=== PATIENT | female | born 1935 | race Caucasian/White ===

== ENCOUNTER 2017-08-12 01:35 | Inpatient (IN) | payer MEDICARE, MEDICAID ==
[2017-08-12 03:07] VITALS: BP 143/73
[2017-08-12] MEDS ORDERED: Magnesium Hydroxide (MOM) 30 mL UDC PO PRN (03:37)
[2017-08-12] MEDS ORDERED: Maalox 30 mL Cup PO PRN (03:37)
--- NOTE | 2017-08-12 08:41 | History and Physical ---
History of Present Illness - HPI Chief Complaint: Psychosis HPI: 82 y/o female who was transferred from [facility] to [facility] for psychosis. The patient was staying at the [facility] and failed to pay her rent for the past 5 days. The data manager of the hotel called the police to get the patient out of the hotel. When the patient refused to answer the door, the patient mention that the were going to have a suicide on there hands and expressed suicial ideation to the patrol police sergeant. As a result the patient was brought to the [facility] for further evaluation and treatment. Patient had some initial labwork done in the ER. Please see transferred records. Patient is currently taking tramadol 50mg PO q6 PRn pain, Ibuprofen 600mg PO BID as well as Ativan, Wellbutrin, and permethrin topical. Discontinued medications include furosemide, hydroxyzine, oxybutynin Vital Signs: Last Vital Signs Temp 98.5 F 08/12/17 03:00 Pulse 73 08/12/17 03:00 Resp 18 08/12/17 03:00 BP 143/73 08/12/17 03:07 Pulse Ox 98 08/12/17 03:00 Past Medical History Cardiovascular: Report: HTN Pulmonary: Report: No Pertinent Hx CRIBBER: Report: No Pertinent Hx GI: Report: No Pertinent Hx Psych: Report: Psychosis Musculoskeletal: Report: Other (arthritis) Rheumatologic: Report: No pertinent Hx Infectious Disease: Report: No Pertinent Hx Renal/: Report: No Pertinent Hx Endocrine: Report: No Pertinent Hx Dermatology: Report: No Pertinent Hx - Past Surgical History Past Surgical History: Appendectomy, Other (hysterectomy, left foot surgery) Family Medical History - Family Member Son History Unknown: Yes Social History Smoke: No Alcohol: None Drugs: None Lives: Alone - Medications Home Medications: Home Medication Medication Instructions Recorded Type Unobtainable 08/12/17 History - Allergies Allergies/Adverse Reactions: Allergies Allergy/AdvReac Type Severity Reaction Status Date / Time Tetracyclines AdvReac Verified 08/12/17 03:08 Review of Systems - Review of Systems Constitutional: Report: No Significant Eyes: Report: No Significant ENT: Report: No Significant Respiratory: Report: No Significant Cardiovascular: Report: No Significant Gastrointestinal: Report: No Significant Genitourinary: Report: No Significant Musculoskeletal: Report: No Significant Skin: Report: No Significant Neurological: Report: No Significant Physical Exam - Physical Exam HEENT: Report: Ears Nose Throat within normal limits, Pharnyx within normal limits Neck: Report: Within normal limits Cardiovascular Systems: Report: +s1/s2 noted, Regular, Rate and Rhythm Respiratory: Report: Breath Sounds are within normal limits Abdomen: Report: Non-tender to palpation, Tender to palpation Back: Report: Inspection of back is within normal limits. Extremities: Report: Non-tender to palpation. Skin: Report: Color of skin is within normal limits Neuro/Psych: Report: Mood affect is within normal limits, A+Ox3, CN II-XII intact - Assessment Assessment: psychosis osteoarthritis hypertension ? anemia - Plan Plan: admit to [facility] continue current medication add dyazide for BP control add ibuprofen as needed for arthritis
[2017-08-12] MEDS: Multivitamin Tab PO SCH (10:13)
--- NOTE | 2017-08-13 03:42 | Psychosocial Evaluation ---
DATE OF SERVICE: 08/12/2017 IDENTIFYING DATA: The patient is an 82-year-old woman, resident of a [facility]. Information obtained by directly interviewing the patient as well as reviewing the admission papers. JUSTIFICATION FOR HOSPITALIZATION: The patient is admitted on 5150 as a danger to self. CHIEF COMPLAINT: "I am depressed." HISTORY OF PRESENT ILLNESS: This is the first psychiatric hospitalization to [facility] for this patient who is reported to have been staying at the [facility] and failed to pay her rent for the past 5 days. The grocery department manager of the [facility] called and asked the patient to pay the rent and the patient has been refusing to do so and also the patient has refused to leave the [facility]. Police were called and the police came and knocked on the door. The patient has been threatening that there is a suicide on their hands if she were to be pulled out of the room. The patient has not been able to contract for safety. The patient was taken to the [facility] for further evaluation and the patient was medically cleared and transferred over here for further stabilization. The patient ____ prior to the hospitalization has been on Wellbutrin and is not very clear for how long she has been taking. PAST PSYCHIATRIC HISTORY: The patient denies any prior psychiatric hospitalization. MEDICAL HISTORY: Physical examination is requested to be done by Dr. Rae. SUBSTANCE ABUSE HISTORY: None. PHYSICAL OR SEXUAL ABUSE HISTORY: None. LEGAL PROBLEMS: None at this time. STRENGTH AND ASSETS: The patient is motivated. MENTAL STATUS EXAMINATION: The patient is an 82-year-old, looking her stated age and superficially cooperative. Eye contact is poor. Mood is depressed. Affect is constricted. Insight and judgment are noted to be very much impaired. Impulse control is very poor. Coping skills are also noted to be poor. The patient is threatening to take her life and the patient is not homicidal at this time. The patient's insight and judgment noted be very much impaired. Impulse control is noted to be poor. Short and long-term memory are noted to be very poor. The patient is getting easily frustrated at the time of the evaluation. DIAGNOSTIC IMPRESSION: AXIS I. Major depressive disorder, recurrent and moderate. AXIS II: None. AXIS III: Osteoarthritis, hypertension and anemia. IMMEDIATE TREATMENT PLAN: The patient is going to be observed on the inpatient unit, provided with supportive psychotherapy. The patient is going to be closely monitored. Once stabilized, the patient is going to be discharged. In view of her depression, the patient is going to be started with the Lexapro. We will start with Lexapro at 5 mg and then the medication is going to be gradually titrated upwards. ESTIMATED LENGTH OF STAY: 5-7 days. DISCHARGE CRITERIA: When she is no longer a threat to self or others and be able to cope up with the stress. JOB# [id number]
--- NOTE | 2017-08-13 08:33 | General Progress Note ---
Subjective - Review of Systems Service Date: 08/13/17 Subjective: Awake,Alert, but confused VS T98.1 P64 R18 BP 129/68 Objective - Physical Exam Vitals and I&O: Vital Signs Temp 98.1 F 08/13/17 06:31 Pulse 64 08/13/17 06:31 Resp 18 08/13/17 06:31 BP 129/68 08/13/17 06:31 Pulse Ox 95 08/13/17 06:31 Intake & Output 08/12/17 08/13/17 08/13/17 18:59 06:59 18:59 Intake Total 970 Balance 970 Intake: Oral 970 Other: # Voids 1 Stool Characteristics Soft Formed Active Medications: Current Medications Acetaminophen (Tylenol) 650 mg PO Q4HR PRN PRN Reason: Mild Pain / Temp above 100 Stop: 10/11/17 03:36 Al Hydrox/Mg Hydrox/Simethicone (Maalox) 30 ml PO Q4HR PRN PRN Reason: GI DISTRESS Stop: 10/11/17 03:36 Escitalopram Oxalate (Lexapro) 5 mg PO DAILY PRIYA; Protocol Stop: 10/12/17 08:59 Ibuprofen (Motrin) 600 mg PO TID PRIYA Stop: 10/11/17 08:59 Last Admin: 08/12/17 21:12 Dose: 600 mg Lorazepam (Ativan) 0.5 mg PO Q4HR PRN; Protocol PRN Reason: Anxiety Stop: 09/11/17 03:36 Magnesium Hydroxide (Milk Of Magnesia) 30 ml PO HS PRN PRN Reason: Constipation Multivitamins/Vitamin C (Theragran) 1 tab PO DAILY PRIYA Stop: 10/11/17 08:59 Last Admin: 08/12/17 10:13 Dose: 1 tab Triamterene/HCTZ (Dyazide) 1 cap PO DAILY PRIYA Stop: 10/11/17 08:59 Last Admin: 08/12/17 14:32 Dose: Not Given Zolpidem Tartrate (Ambien) 5 mg PO HS PRN PRN Reason: Insomnia Stop: 10/11/17 03:36 General: Alert, Oriented x3, No acute distress HEENT: Atraumatic, PERRLA, EOMI Neck: Supple Cardiovascular: Regular rate, Normal S1, Normal S2 Lungs: Clear to auscultation Abdomen: Bowel sounds, Soft Extremities: no Clubbing, no Cyanosis, no Edema Assessment/Plan - Assessment Assessment: psychosis osteoarthritis hypertension anemia - Plan Plan: admit to [facility] continue current medication add dyazide for BP control add ibuprofen as needed for arthritis
[2017-08-13 09:03] LABS: % BASOPHILS 0.2 % (0.0-2.0); % EOSINOPHILS 1.8 % (0.0-5.0); % LYMPHOCYTES 33.4 % (20.0-50.0); % MONOCYTES 6.4 % (2.0-10.0); % NEUTROPHILS 58.2 % (40.0-80.0); EOSINOPHILE ABSOLUTE 0.1 Th/cmm (0.1-0.4); HEMATOCRIT 33.5 % (41.0-60); HEMOGLOBIN 11.3 gm/dL (12-16); LYMPHOCYTE ABSOLUTE 1.5 Th/cmm (1.5-3.0); MEAN CELL VOLUME 88.4 fl (81-100); MEAN CORPUSCULAR HGB CONC 33.9 pg (28.0-36.0); MEAN PLATELET VOLUME 8.3 fl; MONOCYTE ABSOLUTE 0.3 Th/cmm (0.3-1.0); NEUTROPHILE ABSOLUTE 2.5 Th/cmm (1.8-8.0); PLATELET COUNT 233 Th/cmm (150-400); RED BLOOD COUNT 3.79 Mil/cmm (3.80-5.20); RED CELL DISTRIBUTION WIDTH 19.2 % (11.5-20.0); WHITE BLOOD COUNT 4.4 Th/cmm (4.8-10.8)
[2017-08-13] MEDS: Multivitamin Tab PO SCH (09:39)
[2017-08-13 09:41] LABS: ALB/GLOB RATIO 1.2 (1.0-1.8); ALBUMIN 3.3 gm/dL (3.7-5.3); ALKALINE PHOSPHATASE 72 U/L (34-104); ANION GAP 9.7 (7.0-16.0); BILIRUBIN,TOTAL 0.4 mg/dL (0.3-1.0); BUN - UREA NITROGEN 13 mg/dL (7-25); CALCIUM SERUM 8.9 mg/dL (8.6-10.3); CHLORIDE 107 mEq/L (98-107); CHOLESTEROL 161 mg/dL (<200); CREATININE - SERUM 0.6 mg/dL (0.6-1.2); GLUCOSE 93 mg/dL (70-105); HDL -HIGH DENSITY LIPOPROTEIN 57 mg/dL (23-92); POTASSIUM SERUM 3.7 mEq/L (3.5-5.1); SGOT 16 U/L (13-39); SGPT/ALT 12 U/L (7-52); SODIUM SERUM 139 mEq/L (136-145); TOTAL PROTEIN,SERUM 6.1 gm/dL (6.0-8.3); TRIGLYCERIDES 59 mg/dL (<150)
--- NOTE | 2017-08-13 22:57 | Progress Notes ---
DATE: 08/13/2017 SUBJECTIVE: Staff was spoken to. The patient is interviewed. Mood is noted to be irritable. Affect is constricted. Coping skills are noted to be extremely poor. Insight and judgment are also reviewed appear impaired. The patient has been screaming and yelling and stating that all her belongings are there; if the Police Department and she needs to get them right now. The patient has no insight into her illness. The patient is going to be closely monitored, encouraged and then followed up with supportive therapy. At this time, the patient is not ready to be discharged at a lower level of care in view of her psychosis. ASSESSMENT: The patient is still depressed and psychotic. PLAN: To continue the patient with supportive therapy, encouraged the patient to verbalize the concerns rather than to act out. [facility]# [id number]
--- NOTE | 2017-08-14 06:24 | General Progress Note ---
Subjective - Review of Systems Service Date: 08/14/17 Subjective: Awake,Alert, but confused VS T97.7 P62 R18 BP 139/82 Objective - Results Result Diagrams: 08/13/17 08:20 08/13/17 08:20 Recent Labs: Laboratory Last Values WBC 4.4 Th/cmm (4.8-10.8) L 08/13/17 08:20 RBC 3.79 Mil/cmm (3.80-5.20) L 08/13/17 08:20 Hgb 11.3 gm/dL (12-16) L 08/13/17 08:20 Hct 33.5 % (41.0-60) L 08/13/17 08:20 MCV 88.4 fl (81-100) 08/13/17 08:20 MCH 30.0 pg (27.0-31.0) 08/13/17 08:20 MCHC Differential 33.9 pg (28.0-36.0) 08/13/17 08:20 RDW 19.2 % (11.5-20.0) 08/13/17 08:20 Plt Count 233 Th/cmm (150-400) 08/13/17 08:20 MPV 8.3 fl 08/13/17 08:20 Neutrophils % 58.2 % (40.0-80.0) 08/13/17 08:20 Lymphocytes % 33.4 % (20.0-50.0) 08/13/17 08:20 Monocytes % 6.4 % (2.0-10.0) 08/13/17 08:20 Eosinophils % 1.8 % (0.0-5.0) 08/13/17 08:20 Basophils % 0.2 % (0.0-2.0) 08/13/17 08:20 Sodium 139 mEq/L (136-145) 08/13/17 08:20 Potassium 3.7 mEq/L (3.5-5.1) 08/13/17 08:20 Chloride 107 mEq/L (98-107) 08/13/17 08:20 Carbon Dioxide 26.0 mEq/L (21.0-31.0) 08/13/17 08:20 Anion Gap 9.7 (7.0-16.0) 08/13/17 08:20 BUN 13 mg/dL (7-25) 08/13/17 08:20 Creatinine 0.6 mg/dL (0.6-1.2) 08/13/17 08:20 Est GFR ( Amer) TNP 08/13/17 08:20 Est GFR (Non-Af Amer) TNP 08/13/17 08:20 BUN/Creatinine Ratio 21.7 08/13/17 08:20 Glucose 93 mg/dL (70-105) 08/13/17 08:20 Calcium 8.9 mg/dL (8.6-10.3) 08/13/17 08:20 Total Bilirubin 0.4 mg/dL (0.3-1.0) 08/13/17 08:20 AST 16 U/L (13-39) 08/13/17 08:20 ALT 12 U/L (7-52) 08/13/17 08:20 Alkaline Phosphatase 72 U/L (34-104) 08/13/17 08:20 Total Protein 6.1 gm/dL (6.0-8.3) 08/13/17 08:20 Albumin 3.3 gm/dL (3.7-5.3) L 08/13/17 08:20 Globulin 2.8 gm/dL 08/13/17 08:20 Albumin/Globulin Ratio 1.2 (1.0-1.8) 08/13/17 08:20 Triglycerides 59 mg/dL (<150) 08/13/17 08:20 Cholesterol 161 mg/dL (<200) 08/13/17 08:20 LDL Cholesterol Direct 94 mg/dL (75-193) 08/13/17 08:20 HDL Cholesterol 57 mg/dL (23-92) 08/13/17 08:20 TSH 1.50 uIU/ml (0.34-5.60) 08/13/17 08:20 - Physical Exam Vitals and I&O: Vital Signs Temp 97.7 F 08/14/17 05:46 Pulse 62 08/14/17 05:46 Resp 18 08/14/17 05:46 BP 139/82 08/14/17 05:46 Pulse Ox 99 08/14/17 05:46 Intake & Output 08/13/17 08/13/17 08/14/17 06:59 18:59 06:59 Intake Total 970 1200 780 Balance 970 1200 780 Intake: Oral 970 1200 780 Other: # Voids 1 3 2 # Bowel Movements 0 Stool Characteristics Soft Soft Soft Formed Formed Formed Active Medications: Current Medications Acetaminophen (Tylenol) 650 mg PO Q4HR PRN PRN Reason: Mild Pain / Temp above 100 Stop: 10/11/17 03:36 Al Hydrox/Mg Hydrox/Simethicone (Maalox) 30 ml PO Q4HR PRN PRN Reason: GI DISTRESS Stop: 10/11/17 03:36 Escitalopram Oxalate (Lexapro) 5 mg PO DAILY PRIYA; Protocol Stop: 10/12/17 08:59 Ibuprofen (Motrin) 600 mg PO TID PRIYA Stop: 10/11/17 08:59 Last Admin: 08/13/17 21:26 Dose: 600 mg Lorazepam (Ativan) 0.5 mg PO Q4HR PRN; Protocol PRN Reason: Anxiety Stop: 09/11/17 03:36 Multivitamins/Vitamin C (Theragran) 1 tab PO DAILY PRIYA Stop: 10/11/17 08:59 Last Admin: 08/13/17 09:39 Dose: 1 tab Quetiapine Fumarate (Seroquel) 12.5 mg PO HS PRIYA; Protocol Stop: 10/12/17 20:59 Triamterene/HCTZ (Dyazide) 1 cap PO DAILY PRIYA Stop: 10/11/17 08:59 Last Admin: 08/13/17 09:38 Dose: 1 cap Zolpidem Tartrate (Ambien) 5 mg PO HS PRN PRN Reason: Insomnia Stop: 10/11/17 03:36 General: Alert, Oriented x3, No acute distress HEENT: Atraumatic, PERRLA, EOMI Neck: Supple Cardiovascular: Regular rate, Normal S1, Normal S2 Lungs: Clear to auscultation Abdomen: Bowel sounds, Soft Extremities: no Clubbing, no Cyanosis, no Edema Assessment/Plan - Assessment Assessment: psychosis osteoarthritis hypertension anemia - Plan Plan: admit to [facility] continue current medication add dyazide for BP control add ibuprofen as needed for arthritis
[2017-08-14] MEDS: Multivitamin Tab PO SCH (09:05)
--- NOTE | 2017-08-14 15:32 | Progress Notes ---
DATE: 08/14/2017 SUBJECTIVE: Staff was spoken to. The patient is interviewed. Mood is noted to be irritable. Affect is constricted. Coping skills are noted to be poor. The patient is very irritable and angry and is demanding that she should not be in here and she should be at a assisted. The binder caser has been helping the patient to look for placement for her, but the patient at this time has no insight into her illness. ASSESSMENT: The patient is still grossly psychotic and demented. PLAN: To continue the patient with supportive therapy. I encouraged the patient to verbalize the concerns rather than to act out. JOB# [id number]
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
--- NOTE | 2017-08-15 05:05 | General Progress Note ---
Subjective - Review of Systems Service Date: 08/15/17 Subjective: Awake,Alert, but confused VS T98.2 P57 R19 BP 116/52 Objective - Results Result Diagrams: 08/13/17 08:20 08/13/17 08:20 Recent Labs: Laboratory Last Values WBC 4.4 Th/cmm (4.8-10.8) L 08/13/17 08:20 RBC 3.79 Mil/cmm (3.80-5.20) L 08/13/17 08:20 Hgb 11.3 gm/dL (12-16) L 08/13/17 08:20 Hct 33.5 % (41.0-60) L 08/13/17 08:20 MCV 88.4 fl (81-100) 08/13/17 08:20 MCH 30.0 pg (27.0-31.0) 08/13/17 08:20 MCHC Differential 33.9 pg (28.0-36.0) 08/13/17 08:20 RDW 19.2 % (11.5-20.0) 08/13/17 08:20 Plt Count 233 Th/cmm (150-400) 08/13/17 08:20 MPV 8.3 fl 08/13/17 08:20 Neutrophils % 58.2 % (40.0-80.0) 08/13/17 08:20 Lymphocytes % 33.4 % (20.0-50.0) 08/13/17 08:20 Monocytes % 6.4 % (2.0-10.0) 08/13/17 08:20 Eosinophils % 1.8 % (0.0-5.0) 08/13/17 08:20 Basophils % 0.2 % (0.0-2.0) 08/13/17 08:20 Sodium 139 mEq/L (136-145) 08/13/17 08:20 Potassium 3.7 mEq/L (3.5-5.1) 08/13/17 08:20 Chloride 107 mEq/L (98-107) 08/13/17 08:20 Carbon Dioxide 26.0 mEq/L (21.0-31.0) 08/13/17 08:20 Anion Gap 9.7 (7.0-16.0) 08/13/17 08:20 BUN 13 mg/dL (7-25) 08/13/17 08:20 Creatinine 0.6 mg/dL (0.6-1.2) 08/13/17 08:20 Est GFR ( Amer) TNP 08/13/17 08:20 Est GFR (Non-Af Amer) TNP 08/13/17 08:20 BUN/Creatinine Ratio 21.7 08/13/17 08:20 Glucose 93 mg/dL (70-105) 08/13/17 08:20 Calcium 8.9 mg/dL (8.6-10.3) 08/13/17 08:20 Total Bilirubin 0.4 mg/dL (0.3-1.0) 08/13/17 08:20 AST 16 U/L (13-39) 08/13/17 08:20 ALT 12 U/L (7-52) 08/13/17 08:20 Alkaline Phosphatase 72 U/L (34-104) 08/13/17 08:20 Total Protein 6.1 gm/dL (6.0-8.3) 08/13/17 08:20 Albumin 3.3 gm/dL (3.7-5.3) L 08/13/17 08:20 Globulin 2.8 gm/dL 08/13/17 08:20 Albumin/Globulin Ratio 1.2 (1.0-1.8) 08/13/17 08:20 Triglycerides 59 mg/dL (<150) 08/13/17 08:20 Cholesterol 161 mg/dL (<200) 08/13/17 08:20 LDL Cholesterol Direct 94 mg/dL (75-193) 08/13/17 08:20 HDL Cholesterol 57 mg/dL (23-92) 08/13/17 08:20 TSH 1.50 uIU/ml (0.34-5.60) 08/13/17 08:20 - Physical Exam Vitals and I&O: Vital Signs Temp 98.2 F 08/14/17 20:25 Pulse 57 08/14/17 20:25 Resp 19 08/14/17 20:25 BP 116/52 08/14/17 20:25 Pulse Ox 98 08/14/17 20:25 Intake & Output 08/14/17 08/14/17 08/15/17 06:59 18:59 06:59 Intake Total 780 1300 1180 Balance 780 1300 1180 Intake: Oral 780 1300 1180 Other: # Voids 2 3 1 # Bowel Movements 0 Stool Characteristics Soft Soft Soft Formed Formed Formed Active Medications: Current Medications Acetaminophen (Tylenol) 650 mg PO Q4HR PRN PRN Reason: Mild Pain / Temp above 100 Stop: 10/11/17 03:36 Al Hydrox/Mg Hydrox/Simethicone (Maalox) 30 ml PO Q4HR PRN PRN Reason: GI DISTRESS Stop: 10/11/17 03:36 Escitalopram Oxalate (Lexapro) 5 mg PO DAILY PRIYA; Protocol Stop: 10/12/17 08:59 Ibuprofen (Motrin) 600 mg PO TID PRIYA Stop: 10/11/17 08:59 Last Admin: 08/14/17 20:39 Dose: 600 mg Lorazepam (Ativan) 0.5 mg PO Q4HR PRN; Protocol PRN Reason: Anxiety Stop: 09/11/17 03:36 Last Admin: 08/14/17 10:57 Dose: 0.5 mg Multivitamins/Vitamin C (Theragran) 1 tab PO DAILY PRIYA Stop: 10/11/17 08:59 Last Admin: 08/14/17 09:05 Dose: 1 tab Quetiapine Fumarate (Seroquel) 12.5 mg PO HS PRIYA; Protocol Stop: 10/12/17 20:59 Last Admin: 08/14/17 20:39 Dose: 12.5 mg Triamterene/HCTZ (Dyazide) 1 cap PO DAILY PRIYA Stop: 10/11/17 08:59 Last Admin: 08/14/17 08:43 Dose: 1 cap Zolpidem Tartrate (Ambien) 5 mg PO HS PRN PRN Reason: Insomnia Stop: 10/11/17 03:36 Last Admin: 08/14/17 20:39 Dose: 5 mg General: Alert, Oriented x3, No acute distress HEENT: Atraumatic, PERRLA, EOMI Neck: Supple Cardiovascular: Regular rate, Normal S1, Normal S2 Lungs: Clear to auscultation Abdomen: Bowel sounds, Soft Extremities: no Clubbing, no Cyanosis, no Edema Assessment/Plan - Assessment Assessment: psychosis osteoarthritis hypertension anemia - Plan Plan: admit to [facility] continue current medication add dyazide for BP control add ibuprofen as needed for arthritis
[2017-08-15] MEDS: Multivitamin Tab PO SCH (10:00)
[2017-08-15] MEDS: Escitalopram Oxalate 5 mg Tab PO SCH (10:01)
--- NOTE | 2017-08-15 13:39 | Progress Notes ---
DATE: 08/15/2017 SUBJECTIVE: Staff was spoken to. The patient is interviewed. Mood is noted to be irritable. Affect is constricted. The patient is stating that she should not be forced to go into ____ any other room on board. The patient is stating she does not want to spend her money. The patient wants ____. Insight and judgment seems to be impaired. Impulse control seems to be poor. Paranoia is a major concern with the patient. The patient has been having difficult time to cope with the stress and the patient has been encouraged to work with the staff, but the patient is stating that there is no reason for her to work with them and the patient demanded that the patient be discharged, but the patient has no place to return to. ASSESSMENT: The patient is still paranoid. PLAN: To continue the patient with the supportive therapy and encouraged the patient to verbalize the concerns. The patient is going to be continued on the Risperdal and started on the Seroquel. She has been getting gradually increased to 25 mg and followed up with the supportive therapy and work with the case planner with regards to finding a place for this patient. JOB# [id number]
--- NOTE | 2017-08-16 07:49 | General Progress Note ---
Subjective - Review of Systems Service Date: 08/16/17 Subjective: Awake,Alert, but confused VS T97.8 P89 R19 BP 117/76 Objective - Results Result Diagrams: 08/13/17 08:20 08/13/17 08:20 Recent Labs: Laboratory Last Values WBC 4.4 Th/cmm (4.8-10.8) L 08/13/17 08:20 RBC 3.79 Mil/cmm (3.80-5.20) L 08/13/17 08:20 Hgb 11.3 gm/dL (12-16) L 08/13/17 08:20 Hct 33.5 % (41.0-60) L 08/13/17 08:20 MCV 88.4 fl (81-100) 08/13/17 08:20 MCH 30.0 pg (27.0-31.0) 08/13/17 08:20 MCHC Differential 33.9 pg (28.0-36.0) 08/13/17 08:20 RDW 19.2 % (11.5-20.0) 08/13/17 08:20 Plt Count 233 Th/cmm (150-400) 08/13/17 08:20 MPV 8.3 fl 08/13/17 08:20 Neutrophils % 58.2 % (40.0-80.0) 08/13/17 08:20 Lymphocytes % 33.4 % (20.0-50.0) 08/13/17 08:20 Monocytes % 6.4 % (2.0-10.0) 08/13/17 08:20 Eosinophils % 1.8 % (0.0-5.0) 08/13/17 08:20 Basophils % 0.2 % (0.0-2.0) 08/13/17 08:20 Sodium 139 mEq/L (136-145) 08/13/17 08:20 Potassium 3.7 mEq/L (3.5-5.1) 08/13/17 08:20 Chloride 107 mEq/L (98-107) 08/13/17 08:20 Carbon Dioxide 26.0 mEq/L (21.0-31.0) 08/13/17 08:20 Anion Gap 9.7 (7.0-16.0) 08/13/17 08:20 BUN 13 mg/dL (7-25) 08/13/17 08:20 Creatinine 0.6 mg/dL (0.6-1.2) 08/13/17 08:20 Est GFR ( Amer) TNP 08/13/17 08:20 Est GFR (Non-Af Amer) TNP 08/13/17 08:20 BUN/Creatinine Ratio 21.7 08/13/17 08:20 Glucose 93 mg/dL (70-105) 08/13/17 08:20 Calcium 8.9 mg/dL (8.6-10.3) 08/13/17 08:20 Total Bilirubin 0.4 mg/dL (0.3-1.0) 08/13/17 08:20 AST 16 U/L (13-39) 08/13/17 08:20 ALT 12 U/L (7-52) 08/13/17 08:20 Alkaline Phosphatase 72 U/L (34-104) 08/13/17 08:20 Total Protein 6.1 gm/dL (6.0-8.3) 08/13/17 08:20 Albumin 3.3 gm/dL (3.7-5.3) L 08/13/17 08:20 Globulin 2.8 gm/dL 08/13/17 08:20 Albumin/Globulin Ratio 1.2 (1.0-1.8) 08/13/17 08:20 Triglycerides 59 mg/dL (<150) 08/13/17 08:20 Cholesterol 161 mg/dL (<200) 08/13/17 08:20 LDL Cholesterol Direct 94 mg/dL (75-193) 08/13/17 08:20 HDL Cholesterol 57 mg/dL (23-92) 08/13/17 08:20 TSH 1.50 uIU/ml (0.34-5.60) 08/13/17 08:20 - Physical Exam Vitals and I&O: Vital Signs Temp 97.8 F 08/16/17 04:42 Pulse 80 08/16/17 04:42 Resp 19 08/16/17 04:42 BP 117/76 08/16/17 04:42 Pulse Ox 93 08/16/17 04:42 Intake & Output 08/15/17 08/16/17 08/16/17 18:59 06:59 18:59 Intake Total 480 Balance 480 Intake: Oral 480 Other: # Voids 2 Stool Characteristics Soft Soft Formed Formed Active Medications: Current Medications Acetaminophen (Tylenol) 650 mg PO Q4HR PRN PRN Reason: Mild Pain / Temp above 100 Stop: 10/11/17 03:36 Al Hydrox/Mg Hydrox/Simethicone (Maalox) 30 ml PO Q4HR PRN PRN Reason: GI DISTRESS Stop: 10/11/17 03:36 Last Admin: 08/15/17 15:55 Dose: 30 ml Escitalopram Oxalate (Lexapro) 5 mg PO DAILY [facility]; Protocol Stop: 10/12/17 08:59 Last Admin: 08/15/17 10:01 Dose: Not Given Ibuprofen (Motrin) 600 mg PO TID PRIYA Stop: 10/11/17 08:59 Last Admin: 08/15/17 20:51 Dose: 600 mg Lorazepam (Ativan) 0.5 mg PO Q4HR PRN; Protocol PRN Reason: Anxiety Stop: 09/11/17 03:36 Last Admin: 08/14/17 10:57 Dose: 0.5 mg Multivitamins/Vitamin C (Theragran) 1 tab PO DAILY PRIYA Stop: 10/11/17 08:59 Last Admin: 08/15/17 10:00 Dose: 1 tab Quetiapine Fumarate (Seroquel) 25 mg PO HS PRIYA; Protocol Stop: 10/14/17 20:59 Last Admin: 08/15/17 20:52 Dose: 25 mg Triamterene/HCTZ (Dyazide) 1 cap PO DAILY PRIYA Stop: 10/11/17 08:59 Last Admin: 08/15/17 09:41 Dose: 1 cap Zolpidem Tartrate (Ambien) 5 mg PO HS PRN PRN Reason: Insomnia Stop: 10/11/17 03:36 Last Admin: 08/15/17 20:52 Dose: 5 mg General: Alert, Oriented x3, No acute distress HEENT: Atraumatic, PERRLA, EOMI Neck: Supple Cardiovascular: Regular rate, Normal S1, Normal S2 Lungs: Clear to auscultation Abdomen: Bowel sounds, Soft Extremities: no Clubbing, no Cyanosis, no Edema Assessment/Plan - Assessment Assessment: psychosis osteoarthritis hypertension anemia - Plan Plan: admit to [facility] continue current medication add dyazide for BP control add ibuprofen as needed for arthritis
[2017-08-16] MEDS: Multivitamin Tab PO SCH (09:15)
[2017-08-16] MEDS: Escitalopram Oxalate 5 mg Tab PO SCH (09:15)
--- NOTE | 2017-08-17 00:13 | Progress Notes ---
DATE: 08/16/2017 PSYCHIATRIC PROGRESS NOTE SUBJECTIVE: Staff was spoke to. The patient is interviewed. Mood is noted to be irritable. Affect is constricted. Insight and judgment are noted to be still impaired. Impulse control is noted to be poor. Coping skills are also noted to be poor. The patient has been having difficult time to cope with the stress. The patient is pacing on the unit all the time. The patient has been currently placed on the low dose of the Seroquel to contain her psychosis and aggressive behavior. The patient is also on 5 mg of the escitalopram and has been able to tolerate the medication. Sleep is noted to be improving. Appetite is noted to be fair at this time. ASSESSMENT: The patient is still paranoid and depressed. PLAN: To continue the patient with the supportive therapy and followup. [facility]# [id number]
--- NOTE | 2017-08-17 07:27 | General Progress Note ---
Subjective - Review of Systems Service Date: 08/17/17 Subjective: Awake,Alert, but confused VS T97.0 P56 R18 BP 122/55 Objective - Results Result Diagrams: 08/13/17 08:20 08/13/17 08:20 Recent Labs: Laboratory Last Values WBC 4.4 Th/cmm (4.8-10.8) L 08/13/17 08:20 RBC 3.79 Mil/cmm (3.80-5.20) L 08/13/17 08:20 Hgb 11.3 gm/dL (12-16) L 08/13/17 08:20 Hct 33.5 % (41.0-60) L 08/13/17 08:20 MCV 88.4 fl (81-100) 08/13/17 08:20 MCH 30.0 pg (27.0-31.0) 08/13/17 08:20 MCHC Differential 33.9 pg (28.0-36.0) 08/13/17 08:20 RDW 19.2 % (11.5-20.0) 08/13/17 08:20 Plt Count 233 Th/cmm (150-400) 08/13/17 08:20 MPV 8.3 fl 08/13/17 08:20 Neutrophils % 58.2 % (40.0-80.0) 08/13/17 08:20 Lymphocytes % 33.4 % (20.0-50.0) 08/13/17 08:20 Monocytes % 6.4 % (2.0-10.0) 08/13/17 08:20 Eosinophils % 1.8 % (0.0-5.0) 08/13/17 08:20 Basophils % 0.2 % (0.0-2.0) 08/13/17 08:20 Sodium 139 mEq/L (136-145) 08/13/17 08:20 Potassium 3.7 mEq/L (3.5-5.1) 08/13/17 08:20 Chloride 107 mEq/L (98-107) 08/13/17 08:20 Carbon Dioxide 26.0 mEq/L (21.0-31.0) 08/13/17 08:20 Anion Gap 9.7 (7.0-16.0) 08/13/17 08:20 BUN 13 mg/dL (7-25) 08/13/17 08:20 Creatinine 0.6 mg/dL (0.6-1.2) 08/13/17 08:20 Est GFR ( Amer) TNP 08/13/17 08:20 Est GFR (Non-Af Amer) TNP 08/13/17 08:20 BUN/Creatinine Ratio 21.7 08/13/17 08:20 Glucose 93 mg/dL (70-105) 08/13/17 08:20 Calcium 8.9 mg/dL (8.6-10.3) 08/13/17 08:20 Total Bilirubin 0.4 mg/dL (0.3-1.0) 08/13/17 08:20 AST 16 U/L (13-39) 08/13/17 08:20 ALT 12 U/L (7-52) 08/13/17 08:20 Alkaline Phosphatase 72 U/L (34-104) 08/13/17 08:20 Total Protein 6.1 gm/dL (6.0-8.3) 08/13/17 08:20 Albumin 3.3 gm/dL (3.7-5.3) L 08/13/17 08:20 Globulin 2.8 gm/dL 08/13/17 08:20 Albumin/Globulin Ratio 1.2 (1.0-1.8) 08/13/17 08:20 Triglycerides 59 mg/dL (<150) 08/13/17 08:20 Cholesterol 161 mg/dL (<200) 08/13/17 08:20 LDL Cholesterol Direct 94 mg/dL (75-193) 08/13/17 08:20 HDL Cholesterol 57 mg/dL (23-92) 08/13/17 08:20 TSH 1.50 uIU/ml (0.34-5.60) 08/13/17 08:20 - Physical Exam Vitals and I&O: Vital Signs Temp 97 F 08/17/17 06:33 Pulse 56 08/17/17 06:33 Resp 18 08/17/17 06:33 BP 122/55 08/17/17 06:33 Pulse Ox 96 08/17/17 06:33 Intake & Output 08/16/17 08/17/17 08/17/17 18:59 06:59 18:59 Intake Total 240 Balance 240 Intake: Oral 240 Other: # Voids 2 Stool Characteristics Soft Formed Active Medications: Current Medications Acetaminophen (Tylenol) 650 mg PO Q4HR PRN PRN Reason: Mild Pain / Temp above 100 Stop: 10/11/17 03:36 Al Hydrox/Mg Hydrox/Simethicone (Maalox) 30 ml PO Q4HR PRN PRN Reason: GI DISTRESS Stop: 10/11/17 03:36 Last Admin: 08/15/17 15:55 Dose: 30 ml Escitalopram Oxalate (Lexapro) 5 mg PO DAILY [facility]; Protocol Stop: 10/12/17 08:59 Last Admin: 08/16/17 09:15 Dose: 5 mg Ibuprofen (Motrin) 600 mg PO TID PRIYA Stop: 10/11/17 08:59 Last Admin: 08/16/17 21:23 Dose: 600 mg Lorazepam (Ativan) 0.5 mg PO Q4HR PRN; Protocol PRN Reason: Anxiety Stop: 09/11/17 03:36 Last Admin: 08/14/17 10:57 Dose: 0.5 mg Multivitamins/Vitamin C (Theragran) 1 tab PO DAILY PRIYA Stop: 10/11/17 08:59 Last Admin: 08/16/17 09:15 Dose: 1 tab Quetiapine Fumarate (Seroquel) 25 mg PO HS PRIYA; Protocol Stop: 10/14/17 20:59 Last Admin: 08/16/17 21:23 Dose: 25 mg Triamterene/HCTZ (Dyazide) 1 cap PO DAILY [facility] Stop: 10/11/17 08:59 Last Admin: 08/16/17 10:05 Dose: 1 cap Zolpidem Tartrate (Ambien) 5 mg PO HS PRN PRN Reason: Insomnia Stop: 10/11/17 03:36 Last Admin: 08/16/17 22:31 Dose: 5 mg General: Alert, Oriented x3, No acute distress HEENT: Atraumatic, PERRLA, EOMI Neck: Supple Cardiovascular: Regular rate, Normal S1, Normal S2 Lungs: Clear to auscultation Abdomen: Bowel sounds, Soft Extremities: no Clubbing, no Cyanosis, no Edema Assessment/Plan - Assessment Assessment: psychosis major depression paranoid osteoarthritis hypertension anemia - Plan Plan: admit to [facility] continue current medication add dyazide for BP control add ibuprofen as needed for arthritis Nutritional Asmnt/Malnutr-PDOC - Dietary Evaluation Malnutrition Findings (Please click <Entered> for more info): Nutritional Asmnt/Malnutrition Start: 08/16/17 17: 33 Text: Status: Complete Freq: Protocol: Document 08/16/17 17:34 [email or web address] (Rec: 08/16/17 17:37 [email or web address] [email or web address]) Nutritional Asmnt/Malnutrition Patient General Information Nutritional Screening Moderate Risk Diagnosis suicidal, DTS Pertinent Medical Hx/Surgical Hx HTN, psychosis Subjective Information Pt seen having lunch in her room at time of visit. Pt reported good appetite. Per EMR, PO intake 100%. Current Diet Order/ Nutrition Support regular Pertinent Medications theragran, seroquel Pertinent Labs 08/13 alb 3.3 Nutritional Hx/Data Height 1.57 m Height (Calculated Centimeters) 157.5 Current Weight (lbs) 53.07 kg Weight (Calculated Kilograms) 53.1 Weight (Calculated Grams) 69373.3 [place] Body Weight 110 Body Mass Index (BMI) 21.4 Weight Status Approriate GI Symptoms GI Symptoms None Last BM none Difficult in: None Skin Integrity/Comment: dryness Current %PO Good (75-100%) Estimated Nutritional Goals BEE in Kcals: Using Current wt Calories/Kcals/Kg 25-30 Kcals Calculated 7322-7260 Protein: Using Current wt Protein g/k Protein Calculated 53 Fluid: ml 1325-1590ml (1ml/kcal) Nutritional Problem No current Nutrition Prob Problem N/A Malnutrition Alert Is there a minimum of two criteria No selected? Query Text:Check all the applicable criteria. A minimum of two criteria are recommended for diagnosis of either severe or non-severe malnutrition. Malnutrition Related to Morbid Obesity Malnutrition related to morbid obesity No Intervention/Recommendation Comments 1. Continue with regular diet as ordered. 2. Monitor PO intake, wt, labs and skin integrity 3. F/U as low risk in 7 days, 08/23 Expected Outcomes/Goals Expected Outcomes/Goals 1. PO intake to meet at least 75% of nutritional needs. 2. Wt stability, skin to remain intact, labs to approach WNL.
[2017-08-17] MEDS: Multivitamin Tab PO SCH (09:17)
[2017-08-17] MEDS: Escitalopram Oxalate 5 mg Tab PO SCH (09:18)
--- NOTE | 2017-08-17 22:43 | Progress Notes ---
DATE: 08/17/2017 PSYCHIATRIC PROGRESS NOTE SUBJECTIVE: Staff was spoken to. The patient is interviewed. Mood is noted to be irritable. Affect is constricted. Insight and judgment at this time are noted to be still improving. Impulse control seems to be poor. Coping skills are also noted to be very poor. The patient has been very agitated. The patient is stating that there is no reason for her to go to the board and care from ____. She does not want to spend the money. She wants rather go to a long term. ASSESSMENT: The patient is still gravely disabled and impulsive. PLAN: To continue the patient with supportive therapy. I encouraged the patient to verbalize the concerns rather than to act out. [facility]# [id number]
[2017-08-18] MEDS: Multivitamin Tab PO SCH (08:36)
[2017-08-18] MEDS: Escitalopram Oxalate 5 mg Tab PO SCH (08:43)
--- NOTE | 2017-08-18 09:02 | General Progress Note ---
Subjective - Review of Systems Service Date: 08/18/17 Subjective: Awake,Alert, but confused VS T98.2 P63 R18 BP 113/70 Objective - Results Result Diagrams: 08/13/17 08:20 08/13/17 08:20 Recent Labs: Laboratory Last Values WBC 4.4 Th/cmm (4.8-10.8) L 08/13/17 08:20 RBC 3.79 Mil/cmm (3.80-5.20) L 08/13/17 08:20 Hgb 11.3 gm/dL (12-16) L 08/13/17 08:20 Hct 33.5 % (41.0-60) L 08/13/17 08:20 MCV 88.4 fl (81-100) 08/13/17 08:20 MCH 30.0 pg (27.0-31.0) 08/13/17 08:20 MCHC Differential 33.9 pg (28.0-36.0) 08/13/17 08:20 RDW 19.2 % (11.5-20.0) 08/13/17 08:20 Plt Count 233 Th/cmm (150-400) 08/13/17 08:20 MPV 8.3 fl 08/13/17 08:20 Neutrophils % 58.2 % (40.0-80.0) 08/13/17 08:20 Lymphocytes % 33.4 % (20.0-50.0) 08/13/17 08:20 Monocytes % 6.4 % (2.0-10.0) 08/13/17 08:20 Eosinophils % 1.8 % (0.0-5.0) 08/13/17 08:20 Basophils % 0.2 % (0.0-2.0) 08/13/17 08:20 Sodium 139 mEq/L (136-145) 08/13/17 08:20 Potassium 3.7 mEq/L (3.5-5.1) 08/13/17 08:20 Chloride 107 mEq/L (98-107) 08/13/17 08:20 Carbon Dioxide 26.0 mEq/L (21.0-31.0) 08/13/17 08:20 Anion Gap 9.7 (7.0-16.0) 08/13/17 08:20 BUN 13 mg/dL (7-25) 08/13/17 08:20 Creatinine 0.6 mg/dL (0.6-1.2) 08/13/17 08:20 Est GFR ( Amer) TNP 08/13/17 08:20 Est GFR (Non-Af Amer) TNP 08/13/17 08:20 BUN/Creatinine Ratio 21.7 08/13/17 08:20 Glucose 93 mg/dL (70-105) 08/13/17 08:20 Calcium 8.9 mg/dL (8.6-10.3) 08/13/17 08:20 Total Bilirubin 0.4 mg/dL (0.3-1.0) 08/13/17 08:20 AST 16 U/L (13-39) 08/13/17 08:20 ALT 12 U/L (7-52) 08/13/17 08:20 Alkaline Phosphatase 72 U/L (34-104) 08/13/17 08:20 Total Protein 6.1 gm/dL (6.0-8.3) 08/13/17 08:20 Albumin 3.3 gm/dL (3.7-5.3) L 08/13/17 08:20 Globulin 2.8 gm/dL 08/13/17 08:20 Albumin/Globulin Ratio 1.2 (1.0-1.8) 08/13/17 08:20 Triglycerides 59 mg/dL (<150) 08/13/17 08:20 Cholesterol 161 mg/dL (<200) 08/13/17 08:20 LDL Cholesterol Direct 94 mg/dL (75-193) 08/13/17 08:20 HDL Cholesterol 57 mg/dL (23-92) 08/13/17 08:20 TSH 1.50 uIU/ml (0.34-5.60) 08/13/17 08:20 - Physical Exam Vitals and I&O: Vital Signs Temp 98.2 F 08/18/17 06:55 Pulse 63 08/18/17 06:55 Resp 18 08/18/17 06:55 BP 113/70 08/18/17 08:44 Pulse Ox 96 08/18/17 06:55 Active Medications: Current Medications Acetaminophen (Tylenol) 650 mg PO Q4HR PRN PRN Reason: Mild Pain / Temp above 100 Stop: 10/11/17 03:36 Al Hydrox/Mg Hydrox/Simethicone (Maalox) 30 ml PO Q4HR PRN PRN Reason: GI DISTRESS Stop: 10/11/17 03:36 Last Admin: 08/15/17 15:55 Dose: 30 ml Escitalopram Oxalate (Lexapro) 5 mg PO DAILY [facility]; Protocol Stop: 10/12/17 08:59 Last Admin: 08/18/17 08:43 Dose: 5 mg Ibuprofen (Motrin) 600 mg PO TID PRIYA Stop: 10/11/17 08:59 Last Admin: 08/18/17 08:44 Dose: Not Given Lorazepam (Ativan) 0.5 mg PO Q4HR PRN; Protocol PRN Reason: Anxiety Stop: 09/11/17 03:36 Last Admin: 08/14/17 10:57 Dose: 0.5 mg Multivitamins/Vitamin C (Theragran) 1 tab PO DAILY [facility] Stop: 10/11/17 08:59 Last Admin: 08/18/17 08:36 Dose: 1 tab Quetiapine Fumarate (Seroquel) 25 mg PO HS PRIYA; Protocol Stop: 10/14/17 20:59 Last Admin: 08/17/17 20:49 Dose: 25 mg Triamterene/HCTZ (Dyazide) 1 cap PO DAILY [facility] Stop: 10/11/17 08:59 Last Admin: 08/18/17 08:44 Dose: 1 cap Zolpidem Tartrate (Ambien) 5 mg PO HS PRN PRN Reason: Insomnia Stop: 10/11/17 03:36 Last Admin: 08/16/17 22:31 Dose: 5 mg General: Alert, Oriented x3, No acute distress HEENT: Atraumatic, PERRLA, EOMI Neck: Supple Cardiovascular: Regular rate, Normal S1, Normal S2 Lungs: Clear to auscultation Abdomen: Bowel sounds, Soft Extremities: no Clubbing, no Cyanosis, no Edema Assessment/Plan - Assessment Assessment: psychosis major depression paranoid osteoarthritis hypertension anemia - Plan Plan: admit to [facility] continue current medication add dyazide for BP control add ibuprofen as needed for arthritis Nutritional Asmnt/Malnutr-PDOC - Dietary Evaluation Malnutrition Findings (Please click <Entered> for more info): Nutritional Asmnt/Malnutrition Start: 08/16/17 17: 33 Text: Status: Complete Freq: Protocol: Document 08/16/17 17:34 LCHENG (Rec: 08/16/17 17:37 [email or web address] [email or web address]) Nutritional Asmnt/Malnutrition Patient General Information Nutritional Screening Moderate Risk Diagnosis suicidal, DTS Pertinent Medical Hx/Surgical Hx HTN, psychosis Subjective Information Pt seen having lunch in her room at time of visit. Pt reported good appetite. Per EMR, PO intake 100%. Current Diet Order/ Nutrition Support regular Pertinent Medications theragran, seroquel Pertinent Labs 08/13 alb 3.3 Nutritional Hx/Data Height 1.57 m Height (Calculated Centimeters) 157.5 Current Weight (lbs) 53.07 kg Weight (Calculated Kilograms) 53.1 Weight (Calculated Grams) 73112.3 [place] Body Weight 110 Body Mass Index (BMI) 21.4 Weight Status Approriate GI Symptoms GI Symptoms None Last BM none Difficult in: None Skin Integrity/Comment: dryness Current %PO Good (75-100%) Estimated Nutritional Goals BEE in Kcals: Using Current wt Calories/Kcals/Kg 25-30 Kcals Calculated 5952-0910 Protein: Using Current wt Protein g/k Protein Calculated 53 Fluid: ml 1325-1590ml (1ml/kcal) Nutritional Problem No current Nutrition Prob Problem N/A Malnutrition Alert Is there a minimum of two criteria No selected? Query Text:Check all the applicable criteria. A minimum of two criteria are recommended for diagnosis of either severe or non-severe malnutrition. Malnutrition Related to Morbid Obesity Malnutrition related to morbid obesity No Intervention/Recommendation Comments 1. Continue with regular diet as ordered. 2. Monitor PO intake, wt, labs and skin integrity 3. F/U as low risk in 7 days, 08/23 Expected Outcomes/Goals Expected Outcomes/Goals 1. PO intake to meet at least 75% of nutritional needs. 2. Wt stability, skin to remain intact, labs to approach WNL.
--- NOTE | 2017-08-18 22:03 | Progress Notes ---
DATE: 08/18/2017 SUBJECTIVE: Staff was spoken to. The patient is interviewed. Mood is noted to be less irritable. Affect is appropriate. The patient is still refusing to go to any of the placements and the patient is stating that she would rather go to a alf her money. The patient has no insight into her illness. Coping skills are noted to be still poor. The patient is being closely monitored at this time. ASSESSMENT: The patient is still psychotic. PLAN: To continue the patient with the supportive therapy. Encouraged the patient to verbalize the concerns rather than to act out. JOB# [id number]
--- NOTE | 2017-08-19 07:44 | General Progress Note ---
Subjective - Review of Systems Service Date: 08/19/17 Subjective: Awake,Alert, but confused VS T98.7 P83 R18 BP 95/66 Objective - Results Result Diagrams: 08/13/17 08:20 08/13/17 08:20 Recent Labs: Laboratory Last Values WBC 4.4 Th/cmm (4.8-10.8) L 08/13/17 08:20 RBC 3.79 Mil/cmm (3.80-5.20) L 08/13/17 08:20 Hgb 11.3 gm/dL (12-16) L 08/13/17 08:20 Hct 33.5 % (41.0-60) L 08/13/17 08:20 MCV 88.4 fl (81-100) 08/13/17 08:20 MCH 30.0 pg (27.0-31.0) 08/13/17 08:20 MCHC Differential 33.9 pg (28.0-36.0) 08/13/17 08:20 RDW 19.2 % (11.5-20.0) 08/13/17 08:20 Plt Count 233 Th/cmm (150-400) 08/13/17 08:20 MPV 8.3 fl 08/13/17 08:20 Neutrophils % 58.2 % (40.0-80.0) 08/13/17 08:20 Lymphocytes % 33.4 % (20.0-50.0) 08/13/17 08:20 Monocytes % 6.4 % (2.0-10.0) 08/13/17 08:20 Eosinophils % 1.8 % (0.0-5.0) 08/13/17 08:20 Basophils % 0.2 % (0.0-2.0) 08/13/17 08:20 Sodium 139 mEq/L (136-145) 08/13/17 08:20 Potassium 3.7 mEq/L (3.5-5.1) 08/13/17 08:20 Chloride 107 mEq/L (98-107) 08/13/17 08:20 Carbon Dioxide 26.0 mEq/L (21.0-31.0) 08/13/17 08:20 Anion Gap 9.7 (7.0-16.0) 08/13/17 08:20 BUN 13 mg/dL (7-25) 08/13/17 08:20 Creatinine 0.6 mg/dL (0.6-1.2) 08/13/17 08:20 Est GFR ( Amer) TNP 08/13/17 08:20 Est GFR (Non-Af Amer) TNP 08/13/17 08:20 BUN/Creatinine Ratio 21.7 08/13/17 08:20 Glucose 93 mg/dL (70-105) 08/13/17 08:20 Calcium 8.9 mg/dL (8.6-10.3) 08/13/17 08:20 Total Bilirubin 0.4 mg/dL (0.3-1.0) 08/13/17 08:20 AST 16 U/L (13-39) 08/13/17 08:20 ALT 12 U/L (7-52) 08/13/17 08:20 Alkaline Phosphatase 72 U/L (34-104) 08/13/17 08:20 Total Protein 6.1 gm/dL (6.0-8.3) 08/13/17 08:20 Albumin 3.3 gm/dL (3.7-5.3) L 08/13/17 08:20 Globulin 2.8 gm/dL 08/13/17 08:20 Albumin/Globulin Ratio 1.2 (1.0-1.8) 08/13/17 08:20 Triglycerides 59 mg/dL (<150) 08/13/17 08:20 Cholesterol 161 mg/dL (<200) 08/13/17 08:20 LDL Cholesterol Direct 94 mg/dL (75-193) 08/13/17 08:20 HDL Cholesterol 57 mg/dL (23-92) 08/13/17 08:20 TSH 1.50 uIU/ml (0.34-5.60) 08/13/17 08:20 - Physical Exam Vitals and I&O: Vital Signs Temp 98.7 F 08/19/17 07:21 Pulse 59 08/19/17 07:21 Resp 19 08/19/17 07:21 BP 95/66 08/19/17 07:21 Pulse Ox 98 08/19/17 07:21 Intake & Output 08/18/17 08/19/17 08/19/17 18:59 06:59 18:59 Intake Total 1500 200 200 Balance 1500 200 200 Intake: Oral 1500 200 200 Other: # Voids 3 3 3 # Bowel Movements 0 0 Active Medications: Current Medications Acetaminophen (Tylenol) 650 mg PO Q4HR PRN PRN Reason: Mild Pain / Temp above 100 Stop: 10/11/17 03:36 Al Hydrox/Mg Hydrox/Simethicone (Maalox) 30 ml PO Q4HR PRN PRN Reason: GI DISTRESS Stop: 10/11/17 03:36 Last Admin: 08/15/17 15:55 Dose: 30 ml Escitalopram Oxalate (Lexapro) 5 mg PO DAILY PRI[facility]; Protocol Stop: 10/12/17 08:59 Last Admin: 08/18/17 08:43 Dose: 5 mg Ibuprofen (Motrin) 600 mg PO TID PRIYA Stop: 10/11/17 08:59 Last Admin: 08/18/17 21:03 Dose: 600 mg Lorazepam (Ativan) 0.5 mg PO Q4HR PRN; Protocol PRN Reason: Anxiety Stop: 09/11/17 03:36 Last Admin: 08/14/17 10:57 Dose: 0.5 mg Multivitamins/Vitamin C (Theragran) 1 tab PO DAILY PRIYA Stop: 10/11/17 08:59 Last Admin: 08/18/17 08:36 Dose: 1 tab Quetiapine Fumarate (Seroquel) 25 mg PO HS PRIYA; Protocol Stop: 10/14/17 20:59 Last Admin: 08/18/17 21:03 Dose: 25 mg Triamterene/HCTZ (Dyazide) 1 cap PO DAILY PRIYA Stop: 10/11/17 08:59 Last Admin: 08/18/17 08:44 Dose: 1 cap Zolpidem Tartrate (Ambien) 5 mg PO HS PRN PRN Reason: Insomnia Stop: 10/11/17 03:36 Last Admin: 08/16/17 22:31 Dose: 5 mg General: Alert, Oriented x3, No acute distress HEENT: Atraumatic, PERRLA, EOMI Neck: Supple Cardiovascular: Regular rate, Normal S1, Normal S2 Lungs: Clear to auscultation Abdomen: Bowel sounds, Soft Extremities: no Clubbing, no Cyanosis, no Edema Assessment/Plan - Assessment Assessment: psychosis major depression paranoid osteoarthritis hypertension anemia - Plan Plan: admit to [facility] continue current medication add dyazide for BP control add ibuprofen as needed for arthritis Nutritional Asmnt/Malnutr-PDOC - Dietary Evaluation Malnutrition Findings (Please click <Entered> for more info): Nutritional Asmnt/Malnutrition Start: 08/16/17 17: 33 Text: Status: Complete Freq: Protocol: Document 08/16/17 17:34 [email or web address] (Rec: 08/16/17 17:37 [id number]) Nutritional Asmnt/Malnutrition Patient General Information Nutritional Screening Moderate Risk Diagnosis suicidal, DTS Pertinent Medical Hx/Surgical Hx HTN, psychosis Subjective Information Pt seen having lunch in her room at time of visit. Pt reported good appetite. Per EMR, PO intake 100%. Current Diet Order/ Nutrition Support regular Pertinent Medications theragran, seroquel Pertinent Labs 08/13 alb 3.3 Nutritional Hx/Data Height 1.57 m Height (Calculated Centimeters) 157.5 Current Weight (lbs) 53.07 kg Weight (Calculated Kilograms) 53.1 Weight (Calculated Grams) 96490.3 Telephone Body Weight 110 Body Mass Index (BMI) 21.4 Weight Status Approriate GI Symptoms GI Symptoms None Last BM none Difficult in: None Skin Integrity/Comment: dryness Current %PO Good (75-100%) Estimated Nutritional Goals BEE in Kcals: Using Current wt Calories/Kcals/Kg 25-30 Kcals Calculated 3352-2750 Protein: Using Current wt Protein g/k Protein Calculated 53 Fluid: ml 1325-1590ml (1ml/kcal) Nutritional Problem No current Nutrition Prob Problem N/A Malnutrition Alert Is there a minimum of two criteria No selected? Query Text:Check all the applicable criteria. A minimum of two criteria are recommended for diagnosis of either severe or non-severe malnutrition. Malnutrition Related to Morbid Obesity Malnutrition related to morbid obesity No Intervention/Recommendation Comments 1. Continue with regular diet as ordered. 2. Monitor PO intake, wt, labs and skin integrity 3. F/U as low risk in 7 days, 08/23 Expected Outcomes/Goals Expected Outcomes/Goals 1. PO intake to meet at least 75% of nutritional needs. 2. Wt stability, skin to remain intact, labs to approach WNL.
[2017-08-19] MEDS: Escitalopram Oxalate 5 mg Tab PO SCH (08:24)
[2017-08-19] MEDS: Multivitamin Tab PO SCH (08:25)
--- NOTE | 2017-08-20 03:20 | Progress Notes ---
DATE: 08/19/2017 PSYCHIATRIC PROGRESS NOTE SUBJECTIVE: Staff was spoken to. The patient is interviewed. Mood is noted to be irritable. Affect is constricted. Insight and judgment are noted to be still poor. Impulse control is noted to be poor. The patient has been having difficult time to cope with the stress. The patient is stating that she is going to be going to a long term. She does not want to spend the money on the board and care and she knows how to survive. ASSESSMENT: The patient is not presenting with any decent insight and judgment and patient at this time is still having no place to return to. PLAN: Plan to continue the patient with the supportive therapy, encouraged the patient to verbalize the concerns rather than to act out. Please note that the patient is not ready to be discharged to a lower level of care yet. JOB# [id number]
--- NOTE | 2017-08-20 08:12 | General Progress Note ---
Subjective - Review of Systems Service Date: 08/20/17 Subjective: Awake,Alert, but confused VS T97.5 P76 R19 BP 107/74 Objective - Results Result Diagrams: 08/13/17 08:20 08/13/17 08:20 Recent Labs: Laboratory Last Values WBC 4.4 Th/cmm (4.8-10.8) L 08/13/17 08:20 RBC 3.79 Mil/cmm (3.80-5.20) L 08/13/17 08:20 Hgb 11.3 gm/dL (12-16) L 08/13/17 08:20 Hct 33.5 % (41.0-60) L 08/13/17 08:20 MCV 88.4 fl (81-100) 08/13/17 08:20 MCH 30.0 pg (27.0-31.0) 08/13/17 08:20 MCHC Differential 33.9 pg (28.0-36.0) 08/13/17 08:20 RDW 19.2 % (11.5-20.0) 08/13/17 08:20 Plt Count 233 Th/cmm (150-400) 08/13/17 08:20 MPV 8.3 fl 08/13/17 08:20 Neutrophils % 58.2 % (40.0-80.0) 08/13/17 08:20 Lymphocytes % 33.4 % (20.0-50.0) 08/13/17 08:20 Monocytes % 6.4 % (2.0-10.0) 08/13/17 08:20 Eosinophils % 1.8 % (0.0-5.0) 08/13/17 08:20 Basophils % 0.2 % (0.0-2.0) 08/13/17 08:20 Sodium 139 mEq/L (136-145) 08/13/17 08:20 Potassium 3.7 mEq/L (3.5-5.1) 08/13/17 08:20 Chloride 107 mEq/L (98-107) 08/13/17 08:20 Carbon Dioxide 26.0 mEq/L (21.0-31.0) 08/13/17 08:20 Anion Gap 9.7 (7.0-16.0) 08/13/17 08:20 BUN 13 mg/dL (7-25) 08/13/17 08:20 Creatinine 0.6 mg/dL (0.6-1.2) 08/13/17 08:20 Est GFR ( Amer) TNP 08/13/17 08:20 Est GFR (Non-Af Amer) TNP 08/13/17 08:20 BUN/Creatinine Ratio 21.7 08/13/17 08:20 Glucose 93 mg/dL (70-105) 08/13/17 08:20 Calcium 8.9 mg/dL (8.6-10.3) 08/13/17 08:20 Total Bilirubin 0.4 mg/dL (0.3-1.0) 08/13/17 08:20 AST 16 U/L (13-39) 08/13/17 08:20 ALT 12 U/L (7-52) 08/13/17 08:20 Alkaline Phosphatase 72 U/L (34-104) 08/13/17 08:20 Total Protein 6.1 gm/dL (6.0-8.3) 08/13/17 08:20 Albumin 3.3 gm/dL (3.7-5.3) L 08/13/17 08:20 Globulin 2.8 gm/dL 08/13/17 08:20 Albumin/Globulin Ratio 1.2 (1.0-1.8) 08/13/17 08:20 Triglycerides 59 mg/dL (<150) 08/13/17 08:20 Cholesterol 161 mg/dL (<200) 08/13/17 08:20 LDL Cholesterol Direct 94 mg/dL (75-193) 08/13/17 08:20 HDL Cholesterol 57 mg/dL (23-92) 08/13/17 08:20 TSH 1.50 uIU/ml (0.34-5.60) 08/13/17 08:20 - Physical Exam Vitals and I&O: Vital Signs Temp 97.5 F 08/20/17 04:53 Pulse 76 08/20/17 04:53 Resp 19 08/20/17 04:53 BP 107/74 08/20/17 04:53 Pulse Ox 92 08/20/17 04:53 Intake & Output 08/19/17 08/20/17 08/20/17 18:59 06:59 18:59 Intake Total 200 480 Balance 200 480 Intake: Oral 200 480 Other: # Voids 3 2 # Bowel Movements 0 Active Medications: Current Medications Acetaminophen (Tylenol) 650 mg PO Q4HR PRN PRN Reason: Mild Pain / Temp above 100 Stop: 10/11/17 03:36 Al Hydrox/Mg Hydrox/Simethicone (Maalox) 30 ml PO Q4HR PRN PRN Reason: GI DISTRESS Stop: 10/11/17 03:36 Last Admin: 08/15/17 15:55 Dose: 30 ml Escitalopram Oxalate (Lexapro) 10 mg PO DAILY [facility]; Protocol Stop: 10/19/17 08:59 Ibuprofen (Motrin) 600 mg PO TID [facility] Stop: 10/11/17 08:59 Last Admin: 08/19/17 21:17 Dose: 600 mg Multivitamins/Vitamin C (Theragran) 1 tab PO DAILY [facility] Stop: 10/11/17 08:59 Last Admin: 08/19/17 08:25 Dose: 1 tab Quetiapine Fumarate (Seroquel) 25 mg PO HS [facility]; Protocol Stop: 10/14/17 20:59 Last Admin: 08/19/17 21:17 Dose: 25 mg Triamterene/HCTZ (Dyazide) 1 cap PO DAILY [facility] Stop: 10/11/17 08:59 Last Admin: 08/19/17 08:27 Dose: Not Given General: Alert, Oriented x3, No acute distress HEENT: Atraumatic, PERRLA, EOMI Neck: Supple Cardiovascular: Regular rate, Normal S1, Normal S2 Lungs: Clear to auscultation Abdomen: Bowel sounds, Soft Extremities: no Clubbing, no Cyanosis, no Edema Assessment/Plan - Assessment Assessment: psychosis major depression paranoid osteoarthritis hypertension anemia - Plan Plan: admit to [facility] continue current medication add dyazide for BP control add ibuprofen as needed for arthritis Nutritional Asmnt/Malnutr-PDOC - Dietary Evaluation Malnutrition Findings (Please click <Entered> for more info): Nutritional Asmnt/Malnutrition Start: 08/16/17 17: 33 Text: Status: Complete Freq: Protocol: Document 08/16/17 17:34 [email or web address] (Rec: 08/16/17 17:37 LESTER [email or web address]) Nutritional Asmnt/Malnutrition Patient General Information Nutritional Screening Moderate Risk Diagnosis suicidal, DTS Pertinent Medical Hx/Surgical Hx HTN, psychosis Subjective Information Pt seen having lunch in her room at time of visit. Pt reported good appetite. Per EMR, PO intake 100%. Current Diet Order/ Nutrition Support regular Pertinent Medications theragran, seroquel Pertinent Labs 08/13 alb 3.3 Nutritional Hx/Data Height 1.57 m Height (Calculated Centimeters) 157.5 Current Weight (lbs) 53.07 kg Weight (Calculated Kilograms) 53.1 Weight (Calculated Grams) [address]127.[address] Body Weight 110 Body Mass Index (BMI) 21.4 Weight Status Approriate GI Symptoms GI Symptoms None Last BM none Difficult in: None Skin Integrity/Comment: dryness Current %PO Good (75-100%) Estimated Nutritional Goals BEE in Kcals: Using Current wt Calories/Kcals/Kg 25-30 Kcals Calculated 7855-3495 Protein: Using Current wt Protein g/k Protein Calculated 53 Fluid: ml 1325-1590ml (1ml/kcal) Nutritional Problem No current Nutrition Prob Problem N/A Malnutrition Alert Is there a minimum of two criteria No selected? Query Text:Check all the applicable criteria. A minimum of two criteria are recommended for diagnosis of either severe or non-severe malnutrition. Malnutrition Related to Morbid Obesity Malnutrition related to morbid obesity No Intervention/Recommendation Comments 1. Continue with regular diet as ordered. 2. Monitor PO intake, wt, labs and skin integrity 3. F/U as low risk in 7 days, 08/23 Expected Outcomes/Goals Expected Outcomes/Goals 1. PO intake to meet at least 75% of nutritional needs. 2. Wt stability, skin to remain intact, labs to approach WNL.
[2017-08-20] MEDS: Multivitamin Tab PO SCH (08:48)
[2017-08-20] MEDS ORDERED: Escitalopram Oxalate 5 mg Tab PO SCH (09:00)
--- NOTE | 2017-08-21 02:21 | Progress Notes ---
DATE: 08/20/2017 PSYCHIATRIC PROGRESS NOTE SUBJECTIVE: Staff was spoken to. The patient is interviewed. Mood is noted to be irritable. Affect is constricted. The patient is stating that she was hoping to be discharged from the hospital, but the patient is stating that she is stuck here. The patient's coping skills at this time are noted to be very poor. No side effects to the medications are noted. ASSESSMENT: The patient is still awaiting placement. PLAN: To continue the patient with the supportive therapy and followup. JOB# [id number]
--- NOTE | 2017-08-21 04:55 | General Progress Note ---
Subjective - Review of Systems Service Date: 08/21/17 Subjective: Awake,Alert, but confused VS T97.6 P63 R19 BP 106/68 Objective - Results Result Diagrams: 08/13/17 08:20 08/13/17 08:20 Recent Labs: Laboratory Last Values WBC 4.4 Th/cmm (4.8-10.8) L 08/13/17 08:20 RBC 3.79 Mil/cmm (3.80-5.20) L 08/13/17 08:20 Hgb 11.3 gm/dL (12-16) L 08/13/17 08:20 Hct 33.5 % (41.0-60) L 08/13/17 08:20 MCV 88.4 fl (81-100) 08/13/17 08:20 MCH 30.0 pg (27.0-31.0) 08/13/17 08:20 MCHC Differential 33.9 pg (28.0-36.0) 08/13/17 08:20 RDW 19.2 % (11.5-20.0) 08/13/17 08:20 Plt Count 233 Th/cmm (150-400) 08/13/17 08:20 MPV 8.3 fl 08/13/17 08:20 Neutrophils % 58.2 % (40.0-80.0) 08/13/17 08:20 Lymphocytes % 33.4 % (20.0-50.0) 08/13/17 08:20 Monocytes % 6.4 % (2.0-10.0) 08/13/17 08:20 Eosinophils % 1.8 % (0.0-5.0) 08/13/17 08:20 Basophils % 0.2 % (0.0-2.0) 08/13/17 08:20 Sodium 139 mEq/L (136-145) 08/13/17 08:20 Potassium 3.7 mEq/L (3.5-5.1) 08/13/17 08:20 Chloride 107 mEq/L (98-107) 08/13/17 08:20 Carbon Dioxide 26.0 mEq/L (21.0-31.0) 08/13/17 08:20 Anion Gap 9.7 (7.0-16.0) 08/13/17 08:20 BUN 13 mg/dL (7-25) 08/13/17 08:20 Creatinine 0.6 mg/dL (0.6-1.2) 08/13/17 08:20 Est GFR ( Amer) TNP 08/13/17 08:20 Est GFR (Non-Af Amer) TNP 08/13/17 08:20 BUN/Creatinine Ratio 21.7 08/13/17 08:20 Glucose 93 mg/dL (70-105) 08/13/17 08:20 Calcium 8.9 mg/dL (8.6-10.3) 08/13/17 08:20 Total Bilirubin 0.4 mg/dL (0.3-1.0) 08/13/17 08:20 AST 16 U/L (13-39) 08/13/17 08:20 ALT 12 U/L (7-52) 08/13/17 08:20 Alkaline Phosphatase 72 U/L (34-104) 08/13/17 08:20 Total Protein 6.1 gm/dL (6.0-8.3) 08/13/17 08:20 Albumin 3.3 gm/dL (3.7-5.3) L 08/13/17 08:20 Globulin 2.8 gm/dL 08/13/17 08:20 Albumin/Globulin Ratio 1.2 (1.0-1.8) 08/13/17 08:20 Triglycerides 59 mg/dL (<150) 08/13/17 08:20 Cholesterol 161 mg/dL (<200) 08/13/17 08:20 LDL Cholesterol Direct 94 mg/dL (75-193) 08/13/17 08:20 HDL Cholesterol 57 mg/dL (23-92) 08/13/17 08:20 TSH 1.50 uIU/ml (0.34-5.60) 08/13/17 08:20 - Physical Exam Vitals and I&O: Vital Signs Temp 97.6 F 08/21/17 04:39 Pulse 63 08/21/17 04:39 Resp 19 08/21/17 04:39 BP 106/68 08/21/17 04:39 Pulse Ox 91 08/21/17 04:39 Intake & Output 08/20/17 08/20/17 08/21/17 06:59 18:59 06:59 Intake Total 480 240 480 Balance 480 240 480 Intake: Oral 480 240 480 Other: # Voids 2 2 2 Active Medications: Current Medications Acetaminophen (Tylenol) 650 mg PO Q4HR PRN PRN Reason: Mild Pain / Temp above 100 Stop: 10/11/17 03:36 Al Hydrox/Mg Hydrox/Simethicone (Maalox) 30 ml PO Q4HR PRN PRN Reason: GI DISTRESS Stop: 10/11/17 03:36 Last Admin: 08/15/17 15:55 Dose: 30 ml Escitalopram Oxalate (Lexapro) 10 mg PO DAILY [facility] Stop: 10/19/17 10:29 Ibuprofen (Motrin) 600 mg PO TID [facility] Stop: 10/11/17 08:59 Last Admin: 08/20/17 21:14 Dose: 600 mg Multivitamins/Vitamin C (Theragran) 1 tab PO DAILY [facility] Stop: 10/11/17 08:59 Last Admin: 08/20/17 08:48 Dose: 1 tab Quetiapine Fumarate (Seroquel) 25 mg PO HS [facility]; Protocol Stop: 10/14/17 20:59 Last Admin: 08/20/17 21:14 Dose: 25 mg Triamterene/HCTZ (Dyazide) 1 cap PO DAILY [facility] Stop: 10/11/17 08:59 Last Admin: 08/20/17 08:49 Dose: 1 cap General: Alert, Oriented x3, No acute distress HEENT: Atraumatic, PERRLA, EOMI Neck: Supple Cardiovascular: Regular rate, Normal S1, Normal S2 Lungs: Clear to auscultation Abdomen: Bowel sounds, Soft Extremities: no Clubbing, no Cyanosis, no Edema Assessment/Plan - Assessment Assessment: psychosis major depression paranoid osteoarthritis hypertension anemia - Plan Plan: admit to [facility] continue current medication add dyazide for BP control add ibuprofen as needed for arthritis Nutritional Asmnt/Malnutr-PDOC - Dietary Evaluation Malnutrition Findings (Please click <Entered> for more info): Nutritional Asmnt/Malnutrition Start: 08/16/17 17: 33 Text: Status: Complete Freq: Protocol: Document 08/16/17 17:34 LESTER (Rec: 08/16/17 17:37 LESTER [email or web address]) Nutritional Asmnt/Malnutrition Patient General Information Nutritional Screening Moderate Risk Diagnosis suicidal, DTS Pertinent Medical Hx/Surgical Hx HTN, psychosis Subjective Information Pt seen having lunch in her room at time of visit. Pt reported good appetite. Per EMR, PO intake 100%. Current Diet Order/ Nutrition Support regular Pertinent Medications theragran, seroquel Pertinent Labs 08/13 alb 3.3 Nutritional Hx/Data Height 1.57 m Height (Calculated Centimeters) 157.5 Current Weight (lbs) 53.07 kg Weight (Calculated Kilograms) 53.1 Weight (Calculated Grams) [address]486.3 [place] Body Weight 110 Body Mass Index (BMI) 21.4 Weight Status Approriate GI Symptoms GI Symptoms None Last BM none Difficult in: None Skin Integrity/Comment: dryness Current %PO Good (75-100%) Estimated Nutritional Goals BEE in Kcals: Using Current wt Calories/Kcals/Kg 25-30 Kcals Calculated 5281-5695 Protein: Using Current wt Protein g/k Protein Calculated 53 Fluid: ml 1325-1590ml (1ml/kcal) Nutritional Problem No current Nutrition Prob Problem N/A Malnutrition Alert Is there a minimum of two criteria No selected? Query Text:Check all the applicable criteria. A minimum of two criteria are recommended for diagnosis of either severe or non-severe malnutrition. Malnutrition Related to Morbid Obesity Malnutrition related to morbid obesity No Intervention/Recommendation Comments 1. Continue with regular diet as ordered. 2. Monitor PO intake, wt, labs and skin integrity 3. F/U as low risk in 7 days, 08/23 Expected Outcomes/Goals Expected Outcomes/Goals 1. PO intake to meet at least 75% of nutritional needs. 2. Wt stability, skin to remain intact, labs to approach WNL.
[2017-08-21] MEDS: Multivitamin Tab PO SCH (09:47)
--- NOTE | 2017-08-21 13:52 | Progress Notes ---
DATE: 08/21/2017 SUBJECTIVE: Staff was spoken to. The patient is interviewed. Mood is noted to be irritable. Affect is constricted. The patient is stating that she is frustrated for being in here for too long. Could not figure it out why no one is willing to accept her. The patient has been paranoid, but denies any command hallucinations. No side effects to the medications are noted. ASSESSMENT: The patient is still paranoid and awaiting placement. PLAN: To continue the patient with supportive therapy and followup. JOB# [id number]
--- NOTE | 2017-08-22 04:47 | General Progress Note ---
Subjective - Review of Systems Service Date: 08/22/17 Subjective: Awake,Alert, but confused VS T98.1 P60 R18 BP 116/71 Objective - Results Result Diagrams: 08/13/17 08:20 08/13/17 08:20 Recent Labs: Laboratory Last Values WBC 4.4 Th/cmm (4.8-10.8) L 08/13/17 08:20 RBC 3.79 Mil/cmm (3.80-5.20) L 08/13/17 08:20 Hgb 11.3 gm/dL (12-16) L 08/13/17 08:20 Hct 33.5 % (41.0-60) L 08/13/17 08:20 MCV 88.4 fl (81-100) 08/13/17 08:20 MCH 30.0 pg (27.0-31.0) 08/13/17 08:20 MCHC Differential 33.9 pg (28.0-36.0) 08/13/17 08:20 RDW 19.2 % (11.5-20.0) 08/13/17 08:20 Plt Count 233 Th/cmm (150-400) 08/13/17 08:20 MPV 8.3 fl 08/13/17 08:20 Neutrophils % 58.2 % (40.0-80.0) 08/13/17 08:20 Lymphocytes % 33.4 % (20.0-50.0) 08/13/17 08:20 Monocytes % 6.4 % (2.0-10.0) 08/13/17 08:20 Eosinophils % 1.8 % (0.0-5.0) 08/13/17 08:20 Basophils % 0.2 % (0.0-2.0) 08/13/17 08:20 Sodium 139 mEq/L (136-145) 08/13/17 08:20 Potassium 3.7 mEq/L (3.5-5.1) 08/13/17 08:20 Chloride 107 mEq/L (98-107) 08/13/17 08:20 Carbon Dioxide 26.0 mEq/L (21.0-31.0) 08/13/17 08:20 Anion Gap 9.7 (7.0-16.0) 08/13/17 08:20 BUN 13 mg/dL (7-25) 08/13/17 08:20 Creatinine 0.6 mg/dL (0.6-1.2) 08/13/17 08:20 Est GFR ( Amer) TNP 08/13/17 08:20 Est GFR (Non-Af Amer) TNP 08/13/17 08:20 BUN/Creatinine Ratio 21.7 08/13/17 08:20 Glucose 93 mg/dL (70-105) 08/13/17 08:20 Calcium 8.9 mg/dL (8.6-10.3) 08/13/17 08:20 Total Bilirubin 0.4 mg/dL (0.3-1.0) 08/13/17 08:20 AST 16 U/L (13-39) 08/13/17 08:20 ALT 12 U/L (7-52) 08/13/17 08:20 Alkaline Phosphatase 72 U/L (34-104) 08/13/17 08:20 Total Protein 6.1 gm/dL (6.0-8.3) 08/13/17 08:20 Albumin 3.3 gm/dL (3.7-5.3) L 08/13/17 08:20 Globulin 2.8 gm/dL 08/13/17 08:20 Albumin/Globulin Ratio 1.2 (1.0-1.8) 08/13/17 08:20 Triglycerides 59 mg/dL (<150) 08/13/17 08:20 Cholesterol 161 mg/dL (<200) 08/13/17 08:20 LDL Cholesterol Direct 94 mg/dL (75-193) 08/13/17 08:20 HDL Cholesterol 57 mg/dL (23-92) 08/13/17 08:20 TSH 1.50 uIU/ml (0.34-5.60) 08/13/17 08:20 - Physical Exam Vitals and I&O: Vital Signs Temp 98.1 F 08/21/17 16:05 Pulse 60 08/21/17 16:05 Resp 18 08/21/17 16:05 BP 116/71 08/21/17 16:05 Pulse Ox 96 08/21/17 16:05 Intake & Output 08/21/17 08/21/17 08/22/17 06:59 18:59 06:59 Intake Total 480 1500 Balance 480 1500 Intake: Oral 480 1500 Other: # Voids 2 4 # Bowel Movements 0 Active Medications: Current Medications Acetaminophen (Tylenol) 650 mg PO Q4HR PRN PRN Reason: Mild Pain / Temp above 100 Stop: 10/11/17 03:36 Al Hydrox/Mg Hydrox/Simethicone (Maalox) 30 ml PO Q4HR PRN PRN Reason: GI DISTRESS Stop: 10/11/17 03:36 Last Admin: 08/15/17 15:55 Dose: 30 ml Escitalopram Oxalate (Lexapro) 10 mg PO DAILY [facility] Stop: 10/19/17 10:29 Last Admin: 08/21/17 09:47 Dose: 10 mg Ibuprofen (Motrin) 600 mg PO TID [facility] Stop: 10/11/17 08:59 Last Admin: 08/21/17 20:31 Dose: 600 mg Multivitamins/Vitamin C (Theragran) 1 tab PO DAILY [facility] Stop: 10/11/17 08:59 Last Admin: 08/21/17 09:47 Dose: 1 tab Quetiapine Fumarate (Seroquel) 25 mg PO [facility]; Protocol Stop: 10/14/17 20:59 Last Admin: 08/21/17 20:32 Dose: 25 mg Triamterene/HCTZ (Dyazide) 1 cap PO DAILY [facility] Stop: 10/11/17 08:59 Last Admin: 08/21/17 09:48 Dose: Not Given General: Alert, Oriented x3, No acute distress HEENT: Atraumatic, PERRLA, EOMI Neck: Supple Cardiovascular: Regular rate, Normal S1, Normal S2 Lungs: Clear to auscultation Abdomen: Bowel sounds, Soft Extremities: no Clubbing, no Cyanosis, no Edema Assessment/Plan - Assessment Assessment: psychosis major depression paranoid osteoarthritis hypertension anemia - Plan Plan[facility] continue current medication add dyazide for BP control add ibuprofen as needed for arthritis Nutritional Asmnt/Malnutr-PDOC - Dietary Evaluation Malnutrition Findings (Please click <Entered> for more info): Nutritional Asmnt/Malnutrition Start: 08/16/17 17: 33 Text: Status: Complete Freq: Protocol: Document 08/16/17 17:34 LESTER (Rec: 08/16/17 17:37 LESTER [email or web address]) Nutritional Asmnt/Malnutrition Patient General Information Nutritional Screening Moderate Risk Diagnosis suicidal, DTS Pertinent Medical Hx/Surgical Hx HTN, psychosis Subjective Information Pt seen having lunch in her room at time of visit. Pt reported good appetite. Per EMR, PO intake 100%. Current Diet Order/ Nutrition Support regular Pertinent Medications theragran, seroquel Pertinent Labs 08/13 alb 3.3 Nutritional Hx/Data Height 1.57 m Height (Calculated Centimeters) 157.5 Current Weight (lbs) 53.07 kg Weight (Calculated Kilograms) 53.1 Weight (Calculated Grams) [address]28[address].3 [place] Body Weight 110 Body Mass Index (BMI) 21.4 Weight Status Approriate GI Symptoms GI Symptoms None Last BM none Difficult in: None Skin Integrity/Comment: dryness Current %PO Good (75-100%) Estimated Nutritional Goals BEE in Kcals: Using Current wt Calories/Kcals/Kg 25-30 Kcals Calculated 1578-8208 Protein: Using Current wt Protein g/k Protein Calculated 53 Fluid: ml 1325-1590ml (1ml/kcal) Nutritional Problem No current Nutrition Prob Problem N/A Malnutrition Alert Is there a minimum of two criteria No selected? Query Text:Check all the applicable criteria. A minimum of two criteria are recommended for diagnosis of either severe or non-severe malnutrition. Malnutrition Related to Morbid Obesity Malnutrition related to morbid obesity No Intervention/Recommendation Comments 1. Continue with regular diet as ordered. 2. Monitor PO intake, wt, labs and skin integrity 3. F/U as low risk in 7 days, 08/23 Expected Outcomes/Goals Expected Outcomes/Goals 1. PO intake to meet at least 75% of nutritional needs. 2. Wt stability, skin to remain intact, labs to approach WNL.
[2017-08-22] MEDS: Multivitamin Tab PO SCH (08:54)
--- NOTE | 2017-08-22 18:07 | Progress Notes ---
DATE: 08/22/2017 SUBJECTIVE Staff was spoken to. The patient is interviewed. Mood is noted to be irritable and angry. Affect is constricted. The patient is stating that she needs to go to a place and she cannot be in here too long. The patient has been very demanding. The patient has a case therapist has been trying to look for placement for this patient so far no placement is available. ASSESSMENT: The patient is getting irritable and angry. PLAN: To continue the patient and work with the case therapist with regards to placement. JOB# [id number]
--- NOTE | 2017-08-23 08:03 | General Progress Note ---
Subjective - Review of Systems Service Date: 08/23/17 Subjective: Awake,Alert, but confused VS T97.9 P61 R18 BP 106/58 Objective - Results Result Diagrams: 08/13/17 08:20 08/13/17 08:20 Recent Labs: Laboratory Last Values WBC 4.4 Th/cmm (4.8-10.8) L 08/13/17 08:20 RBC 3.79 Mil/cmm (3.80-5.20) L 08/13/17 08:20 Hgb 11.3 gm/dL (12-16) L 08/13/17 08:20 Hct 33.5 % (41.0-60) L 08/13/17 08:20 MCV 88.4 fl (81-100) 08/13/17 08:20 MCH 30.0 pg (27.0-31.0) 08/13/17 08:20 MCHC Differential 33.9 pg (28.0-36.0) 08/13/17 08:20 RDW 19.2 % (11.5-20.0) 08/13/17 08:20 Plt Count 233 Th/cmm (150-400) 08/13/17 08:20 MPV 8.3 fl 08/13/17 08:20 Neutrophils % 58.2 % (40.0-80.0) 08/13/17 08:20 Lymphocytes % 33.4 % (20.0-50.0) 08/13/17 08:20 Monocytes % 6.4 % (2.0-10.0) 08/13/17 08:20 Eosinophils % 1.8 % (0.0-5.0) 08/13/17 08:20 Basophils % 0.2 % (0.0-2.0) 08/13/17 08:20 Sodium 139 mEq/L (136-145) 08/13/17 08:20 Potassium 3.7 mEq/L (3.5-5.1) 08/13/17 08:20 Chloride 107 mEq/L (98-107) 08/13/17 08:20 Carbon Dioxide 26.0 mEq/L (21.0-31.0) 08/13/17 08:20 Anion Gap 9.7 (7.0-16.0) 08/13/17 08:20 BUN 13 mg/dL (7-25) 08/13/17 08:20 Creatinine 0.6 mg/dL (0.6-1.2) 08/13/17 08:20 Est GFR ( Amer) TNP 08/13/17 08:20 Est GFR (Non-Af Amer) TNP 08/13/17 08:20 BUN/Creatinine Ratio 21.7 08/13/17 08:20 Glucose 93 mg/dL (70-105) 08/13/17 08:20 Calcium 8.9 mg/dL (8.6-10.3) 08/13/17 08:20 Total Bilirubin 0.4 mg/dL (0.3-1.0) 08/13/17 08:20 AST 16 U/L (13-39) 08/13/17 08:20 ALT 12 U/L (7-52) 08/13/17 08:20 Alkaline Phosphatase 72 U/L (34-104) 08/13/17 08:20 Total Protein 6.1 gm/dL (6.0-8.3) 08/13/17 08:20 Albumin 3.3 gm/dL (3.7-5.3) L 08/13/17 08:20 Globulin 2.8 gm/dL 08/13/17 08:20 Albumin/Globulin Ratio 1.2 (1.0-1.8) 08/13/17 08:20 Triglycerides 59 mg/dL (<150) 08/13/17 08:20 Cholesterol 161 mg/dL (<200) 08/13/17 08:20 LDL Cholesterol Direct 94 mg/dL (75-193) 08/13/17 08:20 HDL Cholesterol 57 mg/dL (23-92) 08/13/17 08:20 TSH 1.50 uIU/ml (0.34-5.60) 08/13/17 08:20 - Physical Exam Vitals and I&O: Vital Signs Temp 97.9 F 08/23/17 05:43 Pulse 61 08/23/17 05:43 Resp 18 08/23/17 05:43 BP 106/58 08/23/17 05:43 Pulse Ox 93 08/22/17 19:56 Intake & Output 08/22/17 08/23/17 08/23/17 18:59 06:59 18:59 Intake Total 1300 240 Balance 1300 240 Intake: Oral 1300 240 Other: # Voids 3 2 # Bowel Movements 0 Active Medications: Current Medications Acetaminophen (Tylenol) 650 mg PO Q4HR PRN PRN Reason: Mild Pain / Temp above 100 Stop: 10/11/17 03:36 Al Hydrox/Mg Hydrox/Simethicone (Maalox) 30 ml PO Q4HR PRN PRN Reason: GI DISTRESS Stop: 10/11/17 03:36 Last Admin: 08/15/17 15:55 Dose: 30 ml Escitalopram Oxalate (Lexapro) 10 mg PO DAILY [facility] Stop: 10/19/17 10:29 Last Admin: 08/22/17 08:54 Dose: 10 mg Ibuprofen (Motrin) 600 mg PO TID [facility] Stop: 10/11/17 08:59 Last Admin: 08/22/17 21:04 Dose: 600 mg Multivitamins/Vitamin C (Theragran) 1 tab PO DAILY [facility] Stop: 10/11/17 08:59 Last Admin: 08/22/17 08:54 Dose: 1 tab Quetiapine Fumarate (Seroquel) 25 mg PO [facility]; Protocol Stop: 10/14/17 20:59 Last Admin: 08/22/17 21:04 Dose: 25 mg Triamterene/HCTZ (Dyazide) 1 cap PO DAILY [facility] Stop: 10/11/17 08:59 Last Admin: 08/22/17 08:55 Dose: Not Given General: Alert, Oriented x3, No acute distress HEENT: Atraumatic, PERRLA, EOMI Neck: Supple Cardiovascular: Regular rate, Normal S1, Normal S2 Lungs: Clear to auscultation Abdomen: Bowel sounds, Soft Extremities: no Clubbing, no Cyanosis, no Edema Assessment/Plan - Assessment Assessment: psychosis major depression paranoid osteoarthritis hypertension anemia - Plan Plan: [facility] continue current medication add dyazide for BP control add ibuprofen as needed for arthritis Nutritional Asmnt/Malnutr-PDOC - Dietary Evaluation Malnutrition Findings (Please click <Entered> for more info): Nutritional Asmnt/Malnutrition Start: 08/16/17 17: 33 Text: Status: Complete Freq: Protocol: Document 08/16/17 17:34 LESTER (Rec: 08/16/17 17:37 LESTER LAVINIA-FN) Nutritional Asmnt/Malnutrition Patient General Information Nutritional Screening Moderate Risk Diagnosis suicidal, DTS Pertinent Medical Hx/Surgical Hx HTN, psychosis Subjective Information Pt seen having lunch in her room at time of visit. Pt reported good appetite. Per EMR, PO intake 100%. Current Diet Order/ Nutrition Support regular Pertinent Medications theragran, seroquel Pertinent Labs 08/13 alb 3.3 Nutritional Hx/Data Height 1.57 m Height (Calculated Centimeters) 157.5 Current Weight (lbs) 53.07 kg Weight (Calculated Kilograms) 53.1 Weight (Calculated Grams) 59302.3 [place] Body Weight 110 Body Mass Index (BMI) 21.4 Weight Status Approriate GI Symptoms GI Symptoms None Last BM none Difficult in: None Skin Integrity/Comment: dryness Current %PO Good (75-100%) Estimated Nutritional Goals BEE in Kcals: Using Current wt Calories/Kcals/Kg 25-30 Kcals Calculated 6578-6975 Protein: Using Current wt Protein g/k Protein Calculated 53 Fluid: ml 1325-1590ml (1ml/kcal) Nutritional Problem No current Nutrition Prob Problem N/A Malnutrition Alert Is there a minimum of two criteria No selected? Query Text:Check all the applicable criteria. A minimum of two criteria are recommended for diagnosis of either severe or non-severe malnutrition. Malnutrition Related to Morbid Obesity Malnutrition related to morbid obesity No Intervention/Recommendation Comments 1. Continue with regular diet as ordered. 2. Monitor PO intake, wt, labs and skin integrity 3. F/U as low risk in 7 days, 08/23 Expected Outcomes/Goals Expected Outcomes/Goals 1. PO intake to meet at least 75% of nutritional needs. 2. Wt stability, skin to remain intact, labs to approach WNL.
[2017-08-23] MEDS: Multivitamin Tab PO SCH (09:54)
--- NOTE | 2017-08-23 20:50 | Progress Notes ---
DATE: 08/23/2017 PSYCHIATRIC PROGRESS NOTE SUBJECTIVE: Staff was spoken to. The patient is interviewed. Mood is noted to be anxious. Affect is appropriate. The patient is stating that she has been doing fairly well and the only thing is that she needs to find ____. senior center manager has been spoken to and it is reported that the patient has been accepted, but the ____ they are looking for placement for this patient again. ASSESSMENT: The patient is stabilizing. PLAN: To discharge the patient today for followup on outpatient basis. JOB# [id number]
--- NOTE | 2017-08-24 08:19 | General Progress Note ---
Subjective - Review of Systems Service Date: 08/24/17 Subjective: Awake,Alert, but confused VS T97.9 P61 R18 BP 106/58 Objective - Results Result Diagrams: 08/13/17 08:20 08/13/17 08:20 Recent Labs: Laboratory Last Values WBC 4.4 Th/cmm (4.8-10.8) L 08/13/17 08:20 RBC 3.79 Mil/cmm (3.80-5.20) L 08/13/17 08:20 Hgb 11.3 gm/dL (12-16) L 08/13/17 08:20 Hct 33.5 % (41.0-60) L 08/13/17 08:20 MCV 88.4 fl (81-100) 08/13/17 08:20 MCH 30.0 pg (27.0-31.0) 08/13/17 08:20 MCHC Differential 33.9 pg (28.0-36.0) 08/13/17 08:20 RDW 19.2 % (11.5-20.0) 08/13/17 08:20 Plt Count 233 Th/cmm (150-400) 08/13/17 08:20 MPV 8.3 fl 08/13/17 08:20 Neutrophils % 58.2 % (40.0-80.0) 08/13/17 08:20 Lymphocytes % 33.4 % (20.0-50.0) 08/13/17 08:20 Monocytes % 6.4 % (2.0-10.0) 08/13/17 08:20 Eosinophils % 1.8 % (0.0-5.0) 08/13/17 08:20 Basophils % 0.2 % (0.0-2.0) 08/13/17 08:20 Sodium 139 mEq/L (136-145) 08/13/17 08:20 Potassium 3.7 mEq/L (3.5-5.1) 08/13/17 08:20 Chloride 107 mEq/L (98-107) 08/13/17 08:20 Carbon Dioxide 26.0 mEq/L (21.0-31.0) 08/13/17 08:20 Anion Gap 9.7 (7.0-16.0) 08/13/17 08:20 BUN 13 mg/dL (7-25) 08/13/17 08:20 Creatinine 0.6 mg/dL (0.6-1.2) 08/13/17 08:20 Est GFR ( Amer) TNP 08/13/17 08:20 Est GFR (Non-Af Amer) TNP 08/13/17 08:20 BUN/Creatinine Ratio 21.7 08/13/17 08:20 Glucose 93 mg/dL (70-105) 08/13/17 08:20 Calcium 8.9 mg/dL (8.6-10.3) 08/13/17 08:20 Total Bilirubin 0.4 mg/dL (0.3-1.0) 08/13/17 08:20 AST 16 U/L (13-39) 08/13/17 08:20 ALT 12 U/L (7-52) 08/13/17 08:20 Alkaline Phosphatase 72 U/L (34-104) 08/13/17 08:20 Total Protein 6.1 gm/dL (6.0-8.3) 08/13/17 08:20 Albumin 3.3 gm/dL (3.7-5.3) L 08/13/17 08:20 Globulin 2.8 gm/dL 08/13/17 08:20 Albumin/Globulin Ratio 1.2 (1.0-1.8) 08/13/17 08:20 Triglycerides 59 mg/dL (<150) 08/13/17 08:20 Cholesterol 161 mg/dL (<200) 08/13/17 08:20 LDL Cholesterol Direct 94 mg/dL (75-193) 08/13/17 08:20 HDL Cholesterol 57 mg/dL (23-92) 08/13/17 08:20 TSH 1.50 uIU/ml (0.34-5.60) 08/13/17 08:20 - Physical Exam Vitals and I&O: Vital Signs Temp 97.3 F 08/24/17 05:55 Pulse 57 08/24/17 05:55 Resp 18 08/24/17 05:55 BP 99/57 08/24/17 05:55 Pulse Ox 96 08/24/17 05:55 Intake & Output 08/23/17 08/24/17 08/24/17 18:59 06:59 18:59 Intake Total 1300 240 Balance 1300 240 Intake: Oral 1300 240 Other: # Voids 3 2 # Bowel Movements 0 Active Medications: Current Medications Acetaminophen (Tylenol) 650 mg PO Q4HR PRN PRN Reason: Mild Pain / Temp above 100 Stop: 10/11/17 03:36 Al Hydrox/Mg Hydrox/Simethicone (Maalox) 30 ml PO Q4HR PRN PRN Reason: GI DISTRESS Stop: 10/11/17 03:36 Last Admin: 08/15/17 15:55 Dose: 30 ml Escitalopram Oxalate (Lexapro) 10 mg PO DAILY [facility] Stop: 10/19/17 10:29 Last Admin: 08/23/17 09:54 Dose: 10 mg Ibuprofen (Motrin) 600 mg PO TID [facility] Stop: 10/11/17 08:59 Last Admin: 08/23/17 21:12 Dose: 600 mg Multivitamins/Vitamin C (Theragran) 1 tab PO DAILY [facility] Stop: 10/11/17 08:59 Last Admin: 08/23/17 09:54 Dose: 1 tab Quetiapine Fumarate (Seroquel) 25 mg PO [facility]; Protocol Stop: 10/14/17 20:59 Last Admin: 08/23/17 21:12 Dose: 25 mg Triamterene/HCTZ (Dyazide) 1 cap PO DAILY [facility] Stop: 10/11/17 08:59 Last Admin: 08/23/17 09:54 Dose: Not Given General: Alert, Oriented x3, No acute distress HEENT: Atraumatic, PERRLA, EOMI Neck: Supple Cardiovascular: Regular rate, Normal S1, Normal S2 Lungs: Clear to auscultation Abdomen: Bowel sounds, Soft Extremities: no Clubbing, no Cyanosis, no Edema Assessment/Plan - Assessment Assessment: psychosis major depression paranoid osteoarthritis hypertension anemia - Plan Plan: [facility] continue current medication add dyazide for BP control add ibuprofen as needed for arthritis Nutritional Asmnt/Malnutr-PDOC - Dietary Evaluation Malnutrition Findings (Please click <Entered> for more info): Nutritional Asmnt/Malnutrition Start: 08/16/17 17: 33 Text: Status: Complete Freq: Protocol: Document 08/16/17 17:34 LESTER (Rec: 08/16/17 17:37 LESTER LAVINIA-FN) Nutritional Asmnt/Malnutrition Patient General Information Nutritional Screening Moderate Risk Diagnosis suicidal, DTS Pertinent Medical Hx/Surgical Hx HTN, psychosis Subjective Information Pt seen having lunch in her room at time of visit. Pt reported good appetite. Per EMR, PO intake 100%. Current Diet Order/ Nutrition Support regular Pertinent Medications theragran, seroquel Pertinent Labs 08/13 alb 3.3 Nutritional Hx/Data Height 1.57 m Height (Calculated Centimeters) 157.5 Current Weight (lbs) 53.07 kg Weight (Calculated Kilograms) 53.1 Weight (Calculated Grams) 20449.3 [place] Body Weight 110 Body Mass Index (BMI) 21.4 Weight Status Approriate GI Symptoms GI Symptoms None Last BM none Difficult in: None Skin Integrity/Comment: dryness Current %PO Good (75-100%) Estimated Nutritional Goals BEE in Kcals: Using Current wt Calories/Kcals/Kg 25-30 Kcals Calculated 0018-4212 Protein: Using Current wt Protein g/k Protein Calculated 53 Fluid: ml 1325-1590ml (1ml/kcal) Nutritional Problem No current Nutrition Prob Problem N/A Malnutrition Alert Is there a minimum of two criteria No selected? Query Text:Check all the applicable criteria. A minimum of two criteria are recommended for diagnosis of either severe or non-severe malnutrition. Malnutrition Related to Morbid Obesity Malnutrition related to morbid obesity No Intervention/Recommendation Comments 1. Continue with regular diet as ordered. 2. Monitor PO intake, wt, labs and skin integrity 3. F/U as low risk in 7 days, 08/23 Expected Outcomes/Goals Expected Outcomes/Goals 1. PO intake to meet at least 75% of nutritional needs. 2. Wt stability, skin to remain intact, labs to approach WNL.
[2017-08-24] MEDS: Multivitamin Tab PO SCH (08:35)
--- NOTE | 2017-08-25 00:02 | Progress Notes ---
DATE: 08/24/2017 SUBJECTIVE: Staff was spoken to. The patient is interviewed. Mood is noted to be anxious. Coping skills at this time are noted to be still limited. Insight and judgment noted to be improving. No side effects to the medications are noted. The patient has been able to verbalize the concerns rather than to act out. Staff were able to find placement for this patient. PLAN: To discharge the patient today for followup on outpatient basis. JOB# [id number]
== END 2017-08-24 17:05 | DRG 885 ==
LOC: GERO2 01:35 → GERO 10:21 → GERO2 10:22
DX: F33.1 Major depressive disorder, recurrent, moderate (principal); R45.851 Suicidal ideations; F29 Unspecified psychosis not due to a substance or known physiological condition; I10 Essential (primary) hypertension; M19.90 Unspecified osteoarthritis, unspecified site; D64.9 Anemia, unspecified; Z90.49 Acquired absence of other specified parts of digestive tract; Z90.710 Acquired absence of both cervix and uterus
CPT/HCPCS: 36415-UA; 80053-TC; 80061-TC; 84443-TC; 85025-TC; G0410; Z7610